=== PATIENT | female | born 1945 | race Two or more races ===

== ENCOUNTER 2022-05-08 00:40 | Emergency (ER) | payer MEDICARE, MEDICAID ==
[~2022-05-08] VITALS: Ht 139.7 cm; Wt 82.5 kg
[2022-05-08 02:24] LABS: Basophils # (auto) 0 10 ^3/uL (0-0.2); Basophils % (auto) 0.2 % (0.0-2.0); Eosinophils # (auto) 0 10 ^3/uL (0-0.8); Hemoglobin 12.5 g/dL (12.2-16.2); Lymphocytes # (auto) 1.8 10 ^3/uL (0.4-5.4); Lymphocytes % (auto) 19.9 % (10.0-50.0); Mean Corpuscular Hemoglobin 29.1 pg (28.0-32.0); Mean Corpuscular Volume 88.4 fL (80.0-100.0); Monocytes # (auto) 0.5 10 ^3/uL (0-1.3); Monocytes % (auto) 5.2 % (0.0-12.0); Neutrophils # (auto) 6.6 10 ^3/uL (1.6-8.6); Neutrophils % (auto) 74.7 % (37.0-80.0); Nucleated Red Blood Cells % 0.1 %; Red Cell Distribution Width 14.9 % (11.8-14.3); White Blood Cell 8.8 10^3/uL (4.4-10.8)
[2022-05-08 02:41] LABS: Albumin 3.7 g/dL (3.4-5.0); BUN/Creatinine Ratio 16.3; Calcium 9.6 mg/dL (8.5-10.1); Potassium 4.1 mmol/L (3.5-5.1)
[2022-05-08 02:44] LABS: Bilirubin, Total 0.5 mg/dL (0.2-1.0); Total Protein 7.3 g/dL (6.4-8.2)
[2022-05-08] MEDS ORDERED: MECLIZINE HCL 25 MG TAB PO ONE (05:30)
[2022-05-08] MEDS ORDERED: cloNIDine HCL 0.1 MG TAB PO ONE (05:30)
[2022-05-08] MEDS ORDERED: ONDANSETRON ODT 4 MG TAB PO ONE (05:45)
[2022-05-08] MEDS ORDERED: MECL25TA18 PO (06:09)
[2022-05-08 10:46] VITALS: BP 152/78
== END 2022-05-08 10:52 | disposition home or self-care (01) ==
LOC: ER 00:40
DX: I16.0 Hypertensive urgency (principal); I10 Essential (primary) hypertension; R42 Dizziness and giddiness; M19.90 Unspecified osteoarthritis, unspecified site; E11.8 Type 2 diabetes mellitus with unspecified complications; Z87.442 Personal history of urinary calculi
CPT/HCPCS: 36415; 70450; 80053; 84484; 85025; 93005; 99285; J8597; Q0162

== ENCOUNTER 2022-06-04 09:34 | Emergency (ER) | payer MEDICARE, MEDICAID ==
[~2022-06-04] VITALS: Ht 139.7 cm; Wt 82.0 kg
[~2022-06-04 09:34] MED LIST: MECL25TA18 PO
[2022-06-04 10:46] LABS: Basophils # (auto) 0 10 ^3/uL (0-0.2); Basophils % (auto) 0.1 % (0.0-2.0); Eosinophils # (auto) 0 10 ^3/uL (0-0.8); Eosinophils % (auto) 0.2 % (0.0-7.0); Hematocrit 36.5 % (36.0-46.0); Hemoglobin 12.3 g/dL (12.2-16.2); Lymphocytes # (auto) 1.3 10 ^3/uL (0.4-5.4); Lymphocytes % (auto) 15.5 % (10.0-50.0); Mean Corpuscular Hemoglobin 29.7 pg (28.0-32.0); Mean Corpuscular Hgb Conc. 33.8 g/dL (32.0-36.0); Monocytes # (auto) 0.9 10 ^3/uL (0-1.3); Monocytes % (auto) 11.1 % (0.0-12.0); Neutrophils # (auto) 6.1 10 ^3/uL (1.6-8.6); Neutrophils % (auto) 73.1 % (37.0-80.0); Red Blood Cells 4.15 10^6/uL (4.0-5.20); Red Cell Distribution Width 14.6 % (11.8-14.3); White Blood Cell 8.4 10^3/uL (4.4-10.8)
[2022-06-04] MEDS ORDERED: SODIUM CHLORIDE 0.9% 1,000 ML IV ONE (11:30)
[2022-06-04] MEDS ORDERED: ONDANSETRON HCL 4 MG/2 ML VIAL IV ONE (11:30)
[2022-06-04 11:33] LABS: Urine Bacteria NONE SEEN /hpf (None Seen); Urine Blood Negative /uL (Negative); Urine WBC <1 /hpf (0 - 5)
[2022-06-04 11:37] LABS: Albumin 3.8 g/dL (3.4-5.0); Calcium 9.2 mg/dL (8.5-10.1); Potassium 3.9 mmol/L (3.5-5.1)
[2022-06-04 11:49] LABS: BUN/Creatinine Ratio 15.7; Bilirubin, Total 0.5 mg/dL (0.2-1.0); Total Protein 7.4 g/dL (6.4-8.2)
[2022-06-04] MEDS ORDERED: METH4PAK PO (17:25)
[2022-06-04] MEDS ORDERED: AZIT1POW PO (17:25)
[2022-06-04 18:00] VITALS: BP 148/74
== END 2022-06-04 18:56 | disposition home or self-care (01) ==
LOC: ER 09:34
DX: U07.1 COVID-19 (principal); E11.9 Type 2 diabetes mellitus without complications; E78.5 Hyperlipidemia, unspecified; I10 Essential (primary) hypertension; Z90.710 Acquired absence of both cervix and uterus; Z87.442 Personal history of urinary calculi
CPT/HCPCS: 36415; 71046; 80053; 81001; 85025; 87426; 87804; 96361; 96374; 99284; J2405; J7030

== ENCOUNTER 2022-07-19 21:44 | Emergency (ER) | payer MEDICARE, MEDICAID ==
[~2022-07-19] VITALS: Ht 139.7 cm; Wt 178.0 kg
[~2022-07-19 21:44] MED LIST changes: +AZIT1POW PO; +METH4PAK PO
[2022-07-20] MEDS ORDERED: LIDOCAINE W/ EPINEPHRINE 1% 20ML VIAL ID ONE
[2022-07-20] MEDS ORDERED: NEOMYCIN-BACITRACIN-POLYM UNITDOSE PKG TOP OINT TOP ONE (00:45)
[2022-07-20 01:24] VITALS: BP 128/66
== END 2022-07-20 01:47 | disposition home or self-care (01) ==
LOC: EDBD 21:44 → ER 21:44
DX: S01.01XA Laceration without foreign body of scalp, initial encounter (principal); S80.02XA Contusion of left knee, initial encounter; E11.9 Type 2 diabetes mellitus without complications; E78.5 Hyperlipidemia, unspecified; I10 Essential (primary) hypertension; M54.2 Cervicalgia; Z90.710 Acquired absence of both cervix and uterus; Z87.442 Personal history of urinary calculi; W18.09XA Striking against other object with subsequent fall, initial encounter; Y93.89 Activity, other specified; Y92.89 Other specified places as the place of occurrence of the external cause; Y99.8 Other external cause status
CPT/HCPCS: 12002; 70450; 71045; 72125; 73562; 99284; J7030

== ENCOUNTER 2023-01-13 19:55 | Inpatient (IN) | payer MEDICARE, MEDICAID ==
[~2023-01-13] VITALS: Ht 165.1 cm; Wt 88.5 kg
[~2023-01-13 19:55] MED LIST changes: +MECL1TAB32 PO; -MECL25TA18 PO
[2023-01-13 20:58] LABS: Basophils # (auto) 0 10 ^3/uL (0-0.2); Basophils % (auto) 0.1 % (0.0-2.0); Eosinophils # (auto) 0 10 ^3/uL (0-0.8); Eosinophils % (auto) 0.1 % (0.0-7.0); Hematocrit 36.5 % (36.0-46.0); Hemoglobin 12.1 g/dL (12.2-16.2); Lymphocytes # (auto) 2.4 10 ^3/uL (0.4-5.4); Lymphocytes % (auto) 19.8 % (10.0-50.0); Mean Corpuscular Hemoglobin 29.5 pg (28.0-32.0); Mean Corpuscular Hgb Conc. 33.1 g/dL (32.0-36.0); Monocytes # (auto) 0.6 10 ^3/uL (0-1.3); Monocytes % (auto) 5.1 % (0.0-12.0); Neutrophils # (auto) 9.2 10 ^3/uL (1.6-8.6); Neutrophils % (auto) 74.9 % (37.0-80.0); Red Blood Cells 4.11 10^6/uL (4.0-5.20); Red Cell Distribution Width 13.8 % (11.8-14.3); White Blood Cell 12.3 10^3/uL (4.4-10.8)
[2023-01-13 21:17] LABS: Albumin 3.9 g/dL (3.4-5.0); Calcium 9.3 mg/dL (8.5-10.1); Magnesium 2.5 mg/dL (1.6-2.6); Potassium 3.6 mmol/L (3.5-5.1)
[2023-01-13 21:21] LABS: Urine Bacteria FEW /hpf (None Seen); Urine WBC 1 /hpf (0 - 5)
[2023-01-13 21:22] LABS: BUN/Creatinine Ratio 17.5 (10.0-20.0); Bilirubin, Total 0.4 mg/dL (0.2-1.0); Total Protein 7.9 g/dL (6.4-8.2)
[2023-01-13 21:25] LABS: Urine Clarity Clear (Clear); Urine Color Straw (Yellow); Urine Protein, UAD Trace (Negative); Urine Urobilinogen Normal (Negative)
[2023-01-13 21:26] LABS: Urine Blood Negative /uL (Negative); Urine pH 5 (5.0-8.0)
[2023-01-14] MEDS ORDERED: MECLIZINE HCL 25 MG TAB PO ONE (02:00)
[2023-01-14] MEDS ORDERED: ONDANSETRON HCL 4 MG/2 ML VIAL IV ONE (02:15)
[2023-01-14 02:35] VITALS: PULSE 80; RESP 18; O2SAT 94
[2023-01-14] MEDS ORDERED: ONDANSETRON ODT 4 MG TAB PO ONE ×2 (06:00)
[2023-01-14] MEDS ORDERED: NITROGLYCERIN 0.4 MG SL TAB SL PRN (06:45)
[2023-01-14] MEDS ORDERED: MECLIZINE HCL 25 MG TAB PO PRN (06:45)
[2023-01-14] MEDS ORDERED: ACETAMINOPHEN 325 MG TAB PO PRN (06:45)
[2023-01-14] MEDS ORDERED: DOCUSATE SOD 100 MG CAP PO PRN (06:45)
[2023-01-14] MEDS ORDERED: MORPHINE SULFATE INJ 2 MG/ml SYRG IV PRN (06:45)
[2023-01-14] MEDS ORDERED: DEXTROSE (50%) 50ML SYRG IV PRN (06:45)
[2023-01-14] MEDS ORDERED: HYDROcodone-ACET 5/325MG TAB PO PRN (06:45)
[2023-01-14 07:50] VITALS: RESP 19; O2SAT 94
[2023-01-14 08:11] LABS: Basophils # (auto) 0 10 ^3/uL (0-0.2); Eosinophils # (auto) 0 10 ^3/uL (0-0.8); Hematocrit 36.5 % (36.0-46.0); Hemoglobin 12.2 g/dL (12.2-16.2); Lymphocytes # (auto) 1.1 10 ^3/uL (0.4-5.4); Lymphocytes % (auto) 10.4 % (10.0-50.0); Mean Corpuscular Hemoglobin 29.7 pg (28.0-32.0); Mean Corpuscular Hgb Conc. 33.3 g/dL (32.0-36.0); Mean Corpuscular Volume 89.2 fL (80.0-100.0); Monocytes # (auto) 0.6 10 ^3/uL (0-1.3); Monocytes % (auto) 5.5 % (0.0-12.0); Neutrophils # (auto) 8.7 10 ^3/uL (1.6-8.6); Neutrophils % (auto) 84.1 % (37.0-80.0); Red Blood Cells 4.09 10^6/uL (4.0-5.20); Red Cell Distribution Width 13.9 % (11.8-14.3); White Blood Cell 10.4 10^3/uL (4.4-10.8)
[2023-01-14 08:24] LABS: COVID19 ANTIGEN SOFIA FIA NEGATIVE (NEGATIVE); Rapid Influenza A Negative (Negative); Rapid Influenza B Negative (Negative)
[2023-01-14] MEDS: SODIUM CHLORIDE 0.9% 1,000 ML IV SCH ×2 (08:26→23:56)
[2023-01-14 08:29] LABS: Albumin 3.9 g/dL (3.4-5.0); Calcium 9.5 mg/dL (8.5-10.1); Potassium 3.9 mmol/L (3.5-5.1)
[2023-01-14 08:34] LABS: BUN/Creatinine Ratio 19.6 (10.0-20.0); Bilirubin, Total 0.4 mg/dL (0.2-1.0); Total Protein 7.7 g/dL (6.4-8.2)
[2023-01-14] MEDS: cefTRIAXone 1GM/50ML D5W 50 ML IV SCH (09:21)
[2023-01-14] MEDS ORDERED: ONDANSETRON HCL 4 MG/2 ML VIAL IV PRN (10:00)
[2023-01-14] MEDS: ACCU-CHEK COMFORT CURVE STRIP VI SCH ×2 (12:36→17:49)
[2023-01-14] MEDS: InsuLIN REG 1unit/0.01ml Soln (100units/ml) SC SCH ×2 (12:36→17:50)
[2023-01-14 13:25] LABS: Alcohol, Urine < 3.0 mg/dL (0-10); Amphetamine Screen, Urine NEGATIVE (NEGATIVE); Barbiturate Scree,Urine NEGATIVE (NEGATIVE); Benzodiazephine Screen, Urine NEGATIVE (NEGATIVE); Cannabinoid Screen, Urine NEGATIVE (NEGATIVE); Cocaine Screen, Urine NEGATIVE (NEGATIVE); Opiate Scree,Urine NEGATIVE (NEGATIVE); Phencyclidine Screen, Urine NEGATIVE (NEGATIVE)
[2023-01-14 20:00] VITALS: PULSE 85; RESP 18; O2SAT 95
[2023-01-15] VITALS (7 sets, daily range): BP systolic 115–141; BP diastolic 40–80; PULSE 70–76; RESP 16–18; TEMP 97.9–98.1; O2SAT 98–100
[2023-01-15] MEDS: ACCU-CHEK COMFORT CURVE STRIP VI SCH ×5 (00:26→22:56)
[2023-01-15] MEDS: InsuLIN REG 1unit/0.01ml Soln (100units/ml) SC SCH ×4 (00:33→16:58)
[2023-01-15 05:01] LABS: Basophils # (auto) 0 10 ^3/uL (0-0.2); Basophils % (auto) 0.2 % (0.0-2.0); Eosinophils # (auto) 0.1 10 ^3/uL (0-0.8); Eosinophils % (auto) 0.7 % (0.0-7.0); Hematocrit 31.5 % (36.0-46.0); Hemoglobin 10.5 g/dL (12.2-16.2); Lymphocytes # (auto) 3.3 10 ^3/uL (0.4-5.4); Lymphocytes % (auto) 41.4 % (10.0-50.0); Mean Corpuscular Hgb Conc. 33.4 g/dL (32.0-36.0); Mean Corpuscular Volume 89.8 fL (80.0-100.0); Monocytes # (auto) 0.8 10 ^3/uL (0-1.3); Monocytes % (auto) 10.5 % (0.0-12.0); Neutrophils # (auto) 3.8 10 ^3/uL (1.6-8.6); Neutrophils % (auto) 47.2 % (37.0-80.0); Nucleated Red Blood Cells % 0.1 %; Red Blood Cells 3.51 10^6/uL (4.0-5.20); Red Cell Distribution Width 13.8 % (11.8-14.3)
[2023-01-15 05:18] LABS: Albumin 3.2 g/dL (3.4-5.0); Calcium 8.7 mg/dL (8.5-10.1); Potassium 3.4 mmol/L (3.5-5.1)
[2023-01-15 05:22] LABS: BUN/Creatinine Ratio 15.6 (10.0-20.0); Bilirubin, Total 0.4 mg/dL (0.2-1.0); Total Protein 6.5 g/dL (6.4-8.2)
[2023-01-15] MEDS: cefTRIAXone 1GM/50ML D5W 50 ML IV SCH (09:17)
[2023-01-15] MEDS ORDERED: POTASSIUM EFFERVESENT TAB 25 MEQ PO ONE (15:15)
[2023-01-15 15:41] LABS: Cholesterol 170 mg/dL (< 200)
[2023-01-15 15:43] LABS: HDL Cholesterol 43 mg/dL (40-59); LDL Cholesterol 99 mg/dL (< 100); Triglycerides 196 mg/dL (< 150)
[2023-01-15 15:48] LABS: Folate (Folic Acid) 20.51 ng/mL (5.38-24)
[2023-01-15] MEDS: MECLIZINE HCL 25 MG TAB PO SCH (21:10)
[2023-01-16 05:00] VITALS: BP 106/61; PULSE 74; RESP 18; TEMP 98.4; O2SAT 99
[2023-01-16] MEDS: ACCU-CHEK COMFORT CURVE STRIP VI SCH ×3 (05:44→17:58)
[2023-01-16] MEDS: MECLIZINE HCL 25 MG TAB PO SCH ×3 (05:44→21:12)
[2023-01-16] MEDS: InsuLIN REG 1unit/0.01ml Soln (100units/ml) SC SCH ×4 (05:49→17:58)
[2023-01-16 05:54] LABS: Basophils # (auto) 0 10 ^3/uL (0-0.2); Basophils % (auto) 0.3 % (0.0-2.0); Eosinophils # (auto) 0.1 10 ^3/uL (0-0.8); Eosinophils % (auto) 1.7 % (0.0-7.0); Hematocrit 31.6 % (36.0-46.0); Hemoglobin 10.4 g/dL (12.2-16.2); Mean Corpuscular Volume 90.8 fL (80.0-100.0); Monocytes # (auto) 0.8 10 ^3/uL (0-1.3); Monocytes % (auto) 10.8 % (0.0-12.0); Neutrophils # (auto) 3.3 10 ^3/uL (1.6-8.6); Neutrophils % (auto) 46.2 % (37.0-80.0); Nucleated Red Blood Cells % 0.4 %; Red Blood Cells 3.48 10^6/uL (4.0-5.20); Red Cell Distribution Width 13.9 % (11.8-14.3); White Blood Cell 7.3 10^3/uL (4.4-10.8)
[2023-01-16 06:20] LABS: Albumin 2.9 g/dL (3.4-5.0); Calcium 8.8 mg/dL (8.5-10.1); Potassium 4.2 mmol/L (3.5-5.1)
[2023-01-16 06:22] LABS: BUN/Creatinine Ratio 16.5 (10.0-20.0)
[2023-01-16 06:25] LABS: Bilirubin, Total 0.4 mg/dL (0.2-1.0); Total Protein 6.3 g/dL (6.4-8.2)
[2023-01-16 09:00] VITALS: BP 111/70; PULSE 76; RESP 18; TEMP 97.6; O2SAT 98
[2023-01-16] MEDS: ATORVASTATIN 20 MG TAB PO SCH (10:00)
[2023-01-16] MEDS ORDERED: LOSARTAN POTASSIUM 50 MG TAB PO SCH (10:00)
[2023-01-16] MEDS: ASPirin-EC 81 mg tab PO SCH (10:01)
[2023-01-16] MEDS: PANTOPRAZOLE 40 MG/10 ML VIAL INJ IV SCH (10:01)
[2023-01-16 13:00] VITALS: BP_SYST 123; BP_SYST 138; BP_SYST 98; BP_DIAS 42; BP_DIAS 55; BP_DIAS 75; PULSE 77; RESP 18; TEMP 97.7; O2SAT 99
[2023-01-16] MEDS ORDERED: ALBUTEROL SULF 2.5 MG/0.5ML(0.5%) NEB SOLN ONE (13:48)
[2023-01-16 17:00] VITALS: BP 118/57; PULSE 76; RESP 18; TEMP 97.8; O2SAT 94
[2023-01-16 20:00] VITALS: BP 122/69; PULSE 75; RESP 17; TEMP 97.2
[2023-01-16 22:00] VITALS: BP 122/69; PULSE 75; RESP 17; TEMP 97.2; O2SAT 97
[2023-01-17] MEDS: ACCU-CHEK COMFORT CURVE STRIP VI SCH ×3 (00:56→13:56)
[2023-01-17] MEDS: InsuLIN REG 1unit/0.01ml Soln (100units/ml) SC SCH ×3 (00:57→12:00)
[2023-01-17] MEDS ORDERED: FUR20T PO (01:21)
[2023-01-17] MEDS ORDERED: METO-289 PO (01:21)
[2023-01-17] MEDS ORDERED: ATOR40TA52 PO (01:21)
[2023-01-17] MEDS ORDERED: METF-370 PO (01:21)
[2023-01-17] MEDS ORDERED: ASPI-325 PO (01:21)
[2023-01-17] MEDS ORDERED: LOSA100T58 PO (01:21)
[2023-01-17 05:00] VITALS: BP 125/63; PULSE 74; RESP 17; TEMP 98.1; O2SAT 100
[2023-01-17] MEDS: MECLIZINE HCL 25 MG TAB PO SCH ×2 (06:29→15:49)
[2023-01-17 06:48] LABS: Basophils # (auto) 0 10 ^3/uL (0-0.2); Basophils % (auto) 0.1 % (0.0-2.0); Eosinophils # (auto) 0.2 10 ^3/uL (0-0.8); Eosinophils % (auto) 2.5 % (0.0-7.0); Hematocrit 32.6 % (36.0-46.0); Hemoglobin 10.8 g/dL (12.2-16.2); Lymphocytes # (auto) 2.3 10 ^3/uL (0.4-5.4); Lymphocytes % (auto) 34.3 % (10.0-50.0); Mean Corpuscular Hemoglobin 29.9 pg (28.0-32.0); Mean Corpuscular Volume 90.5 fL (80.0-100.0); Monocytes # (auto) 0.7 10 ^3/uL (0-1.3); Monocytes % (auto) 10.7 % (0.0-12.0); Neutrophils # (auto) 3.6 10 ^3/uL (1.6-8.6); Neutrophils % (auto) 52.4 % (37.0-80.0); Nucleated Red Blood Cells % 0.1 %; Red Blood Cells 3.61 10^6/uL (4.0-5.20); Red Cell Distribution Width 13.7 % (11.8-14.3); White Blood Cell 6.8 10^3/uL (4.4-10.8)
[2023-01-17 06:58] LABS: Calcium 8.7 mg/dL (8.5-10.1); Magnesium 2.7 mg/dL (1.6-2.6)
[2023-01-17 07:01] LABS: BUN/Creatinine Ratio 14.4 (10.0-20.0); Bilirubin, Total 0.5 mg/dL (0.2-1.0); Total Protein 6.5 g/dL (6.4-8.2)
[2023-01-17 07:06] LABS: % Iron Saturation 20.8 % (15-50)
[2023-01-17 09:00] VITALS: BP 135/64; PULSE 77; RESP 18; TEMP 97.8; O2SAT 99
[2023-01-17] MEDS ORDERED: LOSARTAN POTASSIUM 50 MG TAB PO SCH (10:00)
[2023-01-17] MEDS: ATORVASTATIN 20 MG TAB PO SCH (10:00)
[2023-01-17 10:02] LABS: Folate (Folic Acid) 22.64 ng/mL (5.38-24)
[2023-01-17] MEDS: PANTOPRAZOLE 40 MG/10 ML VIAL INJ IV SCH (10:42)
[2023-01-17] MEDS: ASPirin-EC 81 mg tab PO SCH (10:42)
[2023-01-17 13:00] VITALS: BP 145/81; PULSE 75; RESP 20; TEMP 98; O2SAT 93
[2023-01-17] MEDS ORDERED: MECL25CH38 PO (13:29)
[2023-01-17 16:44] VITALS: BP 111/70; TEMP 36.7
[2023-01-17 17:00] VITALS: BP 126/69; PULSE 84; RESP 18; TEMP 98.2; O2SAT 94
[2023-01-18] MEDS ORDERED: PANTOPRAZOLE 40 MG TAB PO SCH (10:00)
[2023-01-20 01:06] LABS: Vitamin D-2 25-Hydroxy 5.5 ng/mL (.)
== END 2023-01-17 18:00 | disposition home or self-care (01) | DRG 111 ==
LOC: ER 19:55 → OVERFLOW 01-14 06:40 → EDUNIT# 01-14 06:40 → CENTRAL 01-15 12:42
PROVIDERS: ADMIT Internal Medicine; ATTEND Internal Medicine
DX: H81.10 Benign paroxysmal vertigo, unspecified ear (principal); I27.21 Secondary pulmonary arterial hypertension; E11.22 Type 2 diabetes mellitus with diabetic chronic kidney disease; R16.0 Hepatomegaly, not elsewhere classified; E88.09 Other disorders of plasma-protein metabolism, not elsewhere classified; D64.9 Anemia, unspecified; D72.829 Elevated white blood cell count, unspecified; Z20.822 Contact with and (suspected) exposure to COVID-19; K59.00 Constipation, unspecified; K76.0 Fatty (change of) liver, not elsewhere classified; N18.30 Chronic kidney disease, stage 3 unspecified; E11.65 Type 2 diabetes mellitus with hyperglycemia; I12.9 Hypertensive chronic kidney disease with stage 1 through stage 4 chronic kidney disease, or unspecified chronic kidney disease; E78.5 Hyperlipidemia, unspecified; K57.30 Diverticulosis of large intestine without perforation or abscess without bleeding; K44.9 Diaphragmatic hernia without obstruction or gangrene; R11.15 Cyclical vomiting syndrome unrelated to migraine
CPT/HCPCS: 36415; 70450; 71045; 74176; 80053; 80061; 80307; 81001; 82270; 82306; 82607; 82746; 82962; 83036; 83540; 83550; 83690; 83735; 84443; 84484; 85025; 87426; 87804; 96361; 96374; 97110; 97116; 97163; 97530; C9113; G0378; J0696; J1815; J2405; Q0162

== ENCOUNTER 2024-07-31 11:22 | Inpatient (IN) | payer OTHER, MEDICAID ==
[~2024-07-31] VITALS: Ht 139.7 cm; Wt 81.7 kg
[~2024-07-31 11:22] MED LIST changes: +ASPI-325 PO; +ATOR40TA52 PO; -AZIT1POW PO; +FURO20TA4 PO; +LOSA-535 PO; +MACI1TAB2; -MECL1TAB32 PO; +MECL25CH38 PO; +METF-370 PO; -METH4PAK PO; +METO-289 PO
--- NOTE | 2024-07-31 11:44 | ED.PDOC ---
HPI (NEURO) HPI Comments 79 y/o F, with PMHX OF DM and HTN presents to the ED for CC of dizziness. Patient states, she has been experiencing dizziness episodes x4days with associated unsteady gait and shortness of breath. Patient relays, she has not experienced symptoms in the past. Patient denies abdominal pain, weakness, fatigue, lightheadedness, or N/V/D. No other associated symptom's, modifiers, recent injuries or sick contacts at this time. Time Seen by MD: 11:30 Primary Care Provider: NOÉ Reviewed Notes: Nurses Notes, Medications, Allergies Information Source: Patient, Relative (Child) Mode of Arrival: Ambulatory Severity: Moderate Timing: Days Duration: Since onset Prehospital treatment: None Onset: At rest Circumstances: Spontaneous Symptoms: Vertigo Modifying factors: Nothing Past Medical History PAST MEDICAL HISTORY: COPD, DM, HTN Surgical History: Denies all surgeries BOX BUILDER History: Denies all BOX BUILDER Hx Family History Family History: Reviewed,noncontributory to illness Social History Smoker: Non-Smoker Alcohol: Denies ETOH Use Drugs: Denies Drug Use Lives In: Home Constitutional: denies: chills, diaphoresis, fatigue, fever, malaise, sweats, weakness, others EENTM: denies: blurred vision, double vision, ear bleeding, ear discharge, ear drainage, ear pain, ear ringing, eye pain, eye redness, hearing loss, mouth pa in, mouth swelling, nasal discharge, nose bleeding, nose congestion, nose pain, photophobia, tearing, throat pain, throat swelling, voice changes, others Respiratory: denies: cough, hemoptysis, orthopnea, SOB at rest, shortness of breath, SOB with excertion, stridor, wheezing, others Cardiovascular: denies: chest pain, dizzy spells, diaphoresis, Dyspnea on exertion, edema, irregular heart beat, left arm pain, lightheadedness, palpitations, PND, syncope, others Gastrointestinal: denies: abdomen distended, abdominal pain, blood streaked bowels, constipated, diarrhea, dysphagia, difficulty swallowing, hematemesis, melena, nausea, poor appetite, poor fluid intake, rectal bleeding, rectal pain, vomiting, others Genitourinary: denies: abnormal vagina bleeding, burning, dyspareunia, dysuria, flank pain, frequency, hematuria, incontinence, pain, , vagina discharge, urgency, others Neurological: reports: dizziness; denies: fainting, headache, left sided numbness, left sided weakness, numbness, paresthesia, pre-existing deficit, right sided numbness, right sided weakness, seizure, speech problems, tingling, tremors, weakness, others Musculoskeletal: denies: back pain, gout, joint pain, joint swelling, muscle pain, muscle stiffness, neck pain, others Integumetry: denies: bruises, change in color, change in hair/nails, dryness, laceration, lesions, lumps, rash, wounds, others Allergic/Immunocompromised: denies: Difficulty Healing, Frequent Infections, Hives, Itching, others Hematologic/Lymphatic: denies: anemia, blood clots, easy bleeding, easy bruisi ng, swollen glands, others Endocrine: denies: excessive hunger, excessive sweating, excessive thirst, exce ssive urination, flushing, intolerance to cold, intolerance to heat, unexplained weight gain, unexplained weight loss, others Psychiatric: denies: anxiety, bipolar disorder, depression, hopeless, panic disorder, schizophrenia, sleepless, suicidal, others Physical Exam General Appearance: Moderate Distress HEENT: Normal ENT Inspection, Pharynx Normal, TMs Normal Neck: Full Range of Motion, Non-Tender, Normal, Normal Inspection Respiratory: Chest Non-Tender, Lungs Clear, No Accessory Muscle Use, No Respiratory Distress, Normal Breath Sounds Cardiovascular: No Edema, No JVD, No Murmur, No Gallop, Normal Peripheral Pulse s, Regular Rate/Rhythm Breast Exam: Deferred Gastrointestinal: No Organomegaly, Non Tender, No Pulsatile Mass, Normal Bowel Sounds, Soft Genitalia: Deferred Pelvic: Deferred Rectal: Deferred Extremities: No calf tenderness, Normal capillary refill, Normal inspection, Normal range of motion, Non-tender, No pedal edema Musculoskeletal : Apperance: Normal Neurologic: Dizziness, Motor Weakness, Other (Unable to ambulate without falling) Cerebellar Function: NOT DONE Reflexes: NOT DONE Skin: Normal Color Peripheral Pulses: 3+ Radial (R), 3+ Radial (L) Lymphatic: No Adenopathy Was a procedure done? Was a procedure done?: No Differential Diagnosis (SZ) Seizure: Psychogenic Seizure, Closed Head Injury, CVA/TIA General Weakness: Anemia, Dehydration, Electrolyte imbalance, Hypotension X-Ray, Labs, Meds, VS Vital Signs Date Time Temp Pulse Resp B/P (MAP) Pulse Ox O2 Delivery O2 Flow Rate FiO2 07/31/24 12:14 83 18 97 Room Air* 0 21 07/31/24 12:14 98.0 81 18 151/82 (105) 97 98.0 07/31/24 11:47 85 07/31/24 11:43 98.8 88 18 158/73 (101) 98 Lab Test 07/31/24 11:45 07/31/24 11:44 07/31/24 11:42 Range/Units White Blood Count 10.0 4.4-10.8 10^3/uL Red Blood Count 4.60 4.0-5.20 10^6/uL Hemoglobin 14.1 12.2-16.2 g/dL Hematocrit 41.3 36.0-46.0 % Mean Corpuscular Volume 89.9 80.0-100.0 fL Mean Corpuscular Hemoglobin 30.6 28.0-32.0 pg Mean Corpuscular Hemoglobin Concent 34.1 32.0-36.0 g/dL Red Cell Distribution Width 15.9 H 11.8-14.3 % Platelet Count 210 140-450 10^3/uL Mean Platelet Volume 8.9 6.9-10.8 fL Neutrophils (%) (Auto) 49.3 37.0-80.0 % Lymphocytes (%) (Auto) 40.6 10.0-50.0 % Monocytes (%) (Auto) 9.2 0.0-12.0 % Eosinophils (%) (Auto) 0.5 0.0-7.0 % Basophils (%) (Auto) 0.4 0.0-2.0 % Neutrophils # (Auto) 4.9 1.6-8.6 10 ^3/uL Lymphocytes # (Auto) 4.0 0.4-5.4 10 ^3/uL Monocytes # (Auto) 0.9 0-1.3 10 ^3/uL Eosinophils # (Auto) 0 0-0.8 10 ^3/uL Basophils # (Auto) 0 0-0.2 10 ^3/uL Nucleated Red Blood Cells 0.0 % Sodium Level 139 136-145 mmol/L Potassium Level 3.9 3.5-5.1 mmol/L Chloride Level 105 98-107 mmol/L Carbon Dioxide Level 25 20-31 mmol/L Anion Gap 9 5-15 Blood Urea Nitrogen 20 9-23 mg/dL Creatinine 1.17 H 0.550-1.02 mg/dL Glomerular Filtration Rate Calc 48 >90 mL/min BUN/Creatinine Ratio 17.1 10.0-20.0 Serum Glucose 173 H 74-106 mg/dL Calcium Level 10.5 H 8.7-10.4 mg/dL Troponin I High Sensitivity < 3 L </=34 ng/L POC Glucose 177 H 70-106 mg/dl Urine Color Light-yellow Yellow Urine Clarity Clear Clear Urine pH 5.5 5.0-9.0 Urine Specific [place] 1.016 1.001-1.035 Urine Protein Negative Negative Urine Ketones Negative Negative Urine Blood Negative Negative /uL Urine Nitrite Negative Negative Urine Bilirubin Negative Negative Urine Urobilinogen Normal Negative mg/dL Urine Leukocyte Esterase Negative Negative /uL Urine RBC <1 0 - 4 /hpf Urine Microscopic WBC 5 0-5 /HPF Urine Squamous Epithelial Cells Few <5 /hpf Urine Bacteria None seen None Seen /hpf Urine Glucose 4+ H Normal mg/dL [place] [id number] Ph: [phone] DIAGNOSTIC IMAGING Diagnostic Imaging Report : [id number] Signed PATIENT: LETA CLARKAACCT: [id number] UNIT: [id number] : 1945 LOC: ER ROOM / BED: / AGE / SEX: 79 / F ADM STATUS: REG ER SERVICE 1139 ORDERING PHYSICIAN: LUNA MORELOS MD PROCEDURE(s): CXRP - CHEST PORTABLE REASON: sob ORDER NUMBER(s): [id number], ACCESSION NUMBER(s): [id number] CHEST RADIOGRAPH Indication: sob Technique: Single frontal view of the chest was obtained Comparison: CHEST PORTABLE on DOS: 07/19/22, CXRP on DOS: 07/19/22 FINDINGS: Lines and Tubes: None Lungs: No focal consolidation. Pleura: No effusion. No pneumothorax. Cardiomediastinal contours: Unremarkable Bones: No acute osseous abnormality. IMPRESSION: No acute cardiopulmonary disease. ATED BY: MARIO PARK MD DICTATED DATE/TIME: 07/31/24 1209 SIGNED BY: MARIO PARK MD SIGNED DATE/TIME: 07/31/24 1209 CC: [place] [id number] Ph: [phone] DIAGNOSTIC IMAGING Diagnostic Imaging Report : [id number] Signed PATIENT: LETA CLARKAACCT: [id number] UNIT: [id number] : 1945 LOC: ER ROOM / BED: / AGE / SEX: 79 / F ADM STATUS: REG ER SERVICE 1140 ORDERING PHYSICIAN: LUNA MORELOS MD PROCEDURE(s): HWOCT - HEAD WITHOUT CONTRAST REASON: tia ORDER NUMBER(s): [id number], ACCESSION NUMBER(s): [id number] EXAM: CT HEAD WITHOUT CONTRAST HISTORY: tia COMPARISON: HEAD WITHOUT CONTRAST on DOS: 07/19/22, HEAD WITHOUT CONTRAST on DOS: 05/08/22 TECHNIQUE: Noncontrast axial CT images of the head were performed. Sagittal and coronal reformatted images were obtained. This CT exam was performed using 1 or more of the following dose reduction techniques: Automated exposure control, adjustment of the mA and/or kv according to patient size, or the use of iterative reconstruction techniques. Radiation Dose : Head: CT Dose: CTDI volume is 51.9 mGy. Dose-length product is 832.14 mGy*cm FINDINGS: There is mild global brain atrophy. No intracranial hemorrhage, mass, midline shift, hydrocephalus, or evidence of acute large vessel infarct. There are atherosclerotic calcifications of the cavernous ICAs and terminal vertebral art eries. The partially-visualized paranasal sinuses are clear. There is a small amount of fluid in the right mastoid air cells. The left mastoid air cells and bilateral middle ear spaces are clear. No cranial fracture or scalp edema. IMPRESSION: 1. Global brain atrophy without evidence of acute intracranial process. If acute infarct is clinically suspected, consider follow-up noncontrast MRI of the head to include diffusion-weighted images for further evaluation. 2. Fluid in the right mastoid air cells may be due to sterile fluid or mastoiditis. ATED BY: ANITHA LONDON MD DICTATED DATE/TIME: 07/31/24 1210 SIGNED BY: ANITHA LONDON MD SIGNED DATE/TIME: 07/31/24 1210 CC: Patient alert. Unable to ambulate without falling. Blood sugar elevated. Vitals stable. Urinalysis within normal limits. WBC within normal limits. Blood pressure elevated. Continues to have dizziness. Autonomic disorder. Possibly will need MRI. Explained to the family. Continue cardiac monitoring. Time of 1ST Reevaluation: 12:00 Reevaluation 1ST: Unchanged Patient Education/Counseling: Diagnosis, Treatment Family Education/Counseling: No Family Present Departure 1 Departure Time of Disposition: 12:33 Impression: Primary Impression: TIA (transient ischemic attack) Additional Impressions: Autonomic disorder Uncontrolled diabetes mellitus Qualified Codes: E13.65 - Other specified diabetes mellitus with hyperglycemia Disposition: ADMITTED INPATIENT Admit to: Med Surg Condition: Guarded Critical Care Note Critical Care Time?: No Stability Stability form required: No Heart Score Heart Score: Heart Score Response (Comments) Value History Slightly Suspicious 0 EKG Normal 0 Age >65 2 Risk Factors >3 or Hx ASHD 2 Troponin Normal limit 0 Total 4 I personally scribed for LUNA MORELOS MD ([email or web address]) on 07/31/24 at 11:44. Electronically submitted by Marleni Piedra ([email or web address]). I personally scribed for LUNA MORELOS MD ([email or web address]) on 07/31/24 at 12:39. Electronically submitted by Marleni Piedra ([employer]). I personally scribed for LUNA MORELOS MD ([email or web address]) on 07/31/24 at 12:43. Electronically submitted by Marleni Piedra ([email or web address]). LUNA MORELOS MD Jul 31, 2024 11:44
[2024-07-31 11:57] LABS: Basophils # (auto) 0 10 ^3/uL (0-0.2); Basophils % (auto) 0.4 % (0.0-2.0); Eosinophils # (auto) 0 10 ^3/uL (0-0.8); Eosinophils % (auto) 0.5 % (0.0-7.0); Hematocrit 41.3 % (36.0-46.0); Hemoglobin 14.1 g/dL (12.2-16.2); Lymphocytes % (auto) 40.6 % (10.0-50.0); Mean Corpuscular Hemoglobin 30.6 pg (28.0-32.0); Mean Corpuscular Hgb Conc. 34.1 g/dL (32.0-36.0); Mean Corpuscular Volume 89.9 fL (80.0-100.0); Monocytes # (auto) 0.9 10 ^3/uL (0-1.3); Monocytes % (auto) 9.2 % (0.0-12.0); Neutrophils # (auto) 4.9 10 ^3/uL (1.6-8.6); Neutrophils % (auto) 49.3 % (37.0-80.0); Platelet Count (auto) 210 10^3/uL (140-450); Red Cell Distribution Width 15.9 % (11.8-14.3)
[2024-07-31 12:05] LABS: Urine Bacteria None Seen /hpf (None Seen)
--- NOTE | 2024-07-31 12:11 | DVH ---
CHEST RADIOGRAPH Indication: sob Technique: Single frontal view of the chest was obtained Comparison: CHEST PORTABLE on DOS: 07/19/22, CXRP on DOS: 07/19/22 FINDINGS: Lines and Tubes: None Lungs: No focal consolidation. Pleura: No effusion. No pneumothorax. Cardiomediastinal contours: Unremarkable Bones: No acute osseous abnormality. IMPRESSION: No acute cardiopulmonary disease.
--- NOTE | 2024-07-31 12:13 | DVH ---
EXAM: CT HEAD WITHOUT CONTRAST HISTORY: tia COMPARISON: HEAD WITHOUT CONTRAST on DOS: 07/19/22, HEAD WITHOUT CONTRAST on DOS: 05/08/22 TECHNIQUE: Noncontrast axial CT images of the head were performed. Sagittal and coronal reformatted images were obtained. This CT exam was performed using 1 or more of the following dose reduction techniques: Au tomated exposure control, adjustment of the mA and/or kv according to patient size, or the use of ite rative reconstruction techniques. Radiation Dose : Head: CT Dose: CTDI volume is 51.9 mGy. Dose-length product is 832.14 mGy*cm FINDINGS: There is mild global brain atrophy. No intracranial hemorrhage, mass, midline shift, hydrocephalus, o r evidence of acute large vessel infarct. There are atherosclerotic calcifications of the cavernous I [place] and terminal vertebral arteries. The partially-visualized paranasal sinuses are clear. There is a small amount of fluid in the right mastoid air cells. The left mastoid air cells and bilateral mid dle ear spaces are clear. No cranial fracture or scalp edema. IMPRESSION: 1. Global brain atrophy without evidence of acute intracranial process. If acute infarct is clinical ly suspected, consider follow-up noncontrast MRI of the head to include diffusion-weighted images for further evaluation. 2. Fluid in the right mastoid air cells may be due to sterile fluid or mastoiditis.
[2024-07-31 12:14] VITALS: PULSE 83; RESP 18; O2SAT 97
[2024-07-31 12:15] LABS: Chloride 105 mmol/L (98-107); Potassium 3.9 mmol/L (3.5-5.1); Sodium 139 mmol/L (136-145)
[2024-07-31 12:16] LABS: Anion Gap 9 (5-15); Carbon Dioxide 25 mmol/L (20-31)
[2024-07-31 12:18] LABS: Urine Blood Negative /uL (Negative); Urine Clarity Clear (Clear); Urine Color Light-Yellow (Yellow); Urine Protein, UAD Negative (Negative); Urine Specific Gravity 1.016 (1.001-1.035); Urine Squamous Epithelial Cell FEW /hpf (<5); Urine Urobilinogen Normal (Negative); Urine WBC 5 /HPF (0-5); Urine pH 5.5 (5.0-9.0)
[2024-07-31 12:21] LABS: BUN/Creatinine Ratio 17.1 (10.0-20.0); Blood Urea Nitrogen 20 mg/dL (9-23)
[2024-07-31 12:23] LABS: Calcium 10.5 mg/dL (8.7-10.4); Glucose 173 mg/dL (74-106)
[2024-07-31 20:00] VITALS: PULSE 74; RESP 18; O2SAT 97
[2024-07-31] MEDS: ACETAMINOPHEN 325 MG TAB PO ONE (20:46)
[2024-07-31] MEDS: SODIUM CHLORIDE 0.9% 500 ML IV ONE (22:15)
[2024-07-31] MEDS: MECLIZINE HCL 25 MG TAB PO ONE (22:15)
[2024-07-31] MEDS: ASPirin 81 mg TAB PO ONE (22:15)
[2024-07-31 22:52] VITALS: BP 126/78; PULSE 78; RESP 19; TEMP 97.6; O2SAT 93
[2024-08-01] VITALS (8 sets, daily range): BP systolic 84–145; BP diastolic 39–78; PULSE 69–90; RESP 14–20; TEMP 97.6–98.1; O2SAT 93–97
[2024-08-01] MEDS: AMOXICILLIN/CLAVUL 875 MG TAB PO SCH (01:07)
--- NOTE | 2024-08-01 04:55 | DVHHPRES ---
History of Present Illness Resident Creating Document: YOLI MCKEON RESIDENT History of Present Illness A 79-year-old female with a past medical history of hypertension, diabetes mellitus, dyslipidemia, pulmonary hypertension, vertigo, anxiety, and chronic kidney disease presents to the ED with a four-day history of feeling as if she is leaning to one side. The patient initially described this as dizziness but later clarified that she perceives a lateral imbalance rather than true vertigo. She denies headache, nausea, vomiting, focal weakness, numbness, fever, recent infections, or any new medications. No prior similar episodes. No recent falls or trauma. PMHx: hypertension, diabetes mellitus, dyslipidemia, pulmonary hypertension, vertigo, anxiety, and chronic kidney disease Home meds: Aspirin 81 atorvastatin 40 mg furosemide 20 losartan 100 mg macitentan 10 mg meclizine 25mg metformin 00 mg and metoprolol succinate 50 mg Smoker: Non-Smoker Alcohol: Denies ETOH Use Drugs: Denies Drug Use Lives In: Home Review of Systems Constitutional: No: Fever, Chills, Sweats, Weakness, Malaise, Other Eyes: No: Pain, Vision change, Conjunctivae inflammation, Eyelid inflammation, Other, Redness ENT: No: Ear pain, Ear discharge, Nose pain, Nose discharge, Nose congestion, Mouth pain, Mouth swelling, Throat pain, Throat swelling, Other Respiratory: No: Cough, Dry, Shortness of breath, SOB with excertion, Wheezing, Hemoptysis, Pleuritic Pain, Sputum, Wheezing, Other Cardiovascular: No: Chest Pain, Palpitations, Orthopnea, Paroxysmal Noc. Dyspnea, Edema, Lt Headedness, Other Gastrointestinal: No: Nausea, Vomiting, Abdominal Pain, Diarrhea, Constipation, Melena, Hematochezia, Other Genitourinary: No Dysuria, No Frequency, No Incontinence, No Hematuria, No Retention, No Other Musculoskeletal: No: other, neck pain, shoulder pain, arm pain, back pain, hand pain, leg pain, foot pain Skin: No: Rash, Lesions, Jaundice, Bruising, Other Neurological: No: Weakness, Numbness, Incoordination, Change in speech, Confusion, Seizures, Other Allergies: Coded Allergies: NO KNOWN ALLERGIES (Unverified , 05/08/22) Medications Current Medications Medications Dose Ordered Sig/Ryan Route Start Time Stop Time Status Last Admin Dose Admin Amoxicillin/ Clavulanate Potassium 875 mg Q12HR PO 08/01/24 01:00 08/01/24 01:07 875 MG Exam Vital Signs Vital Signs Date Time Temp Pulse Resp B/P (MAP) Pulse Ox O2 Delivery O2 Flow Rate FiO2 08/01/24 01:00 97.6 71 18 110/53 (72) 95 97.6 139/77 (97) 127/69 (88) 07/31/24 22:52 Room Air* 0 21 Exam Neurological: No focal deficits, cranial nerves intact, strength 5/5 in all extremities, normal reflexes, and normal cerebellar function except for mild instability when walking. General Appearance: Alert, Oriented X3 HEENT: Atraumatic, PERRLA Respiratory: Normal air movement Cardiovascular: Regular rate Abdominal: Normal bowel sounds Extremities: No clubbing, No cyanosis Labs/Xrays Labs Test 07/31/24 11:45 07/31/24 11:44 07/31/24 11:42 Range/Units White Blood Count 10.0 4.4-10.8 10^3/uL Red Blood Count 4.60 4.0-5.20 10^6/uL Hemoglobin 14.1 12.2-16.2 g/dL Hematocrit 41.3 36.0-46.0 % Mean Corpuscular Volume 89.9 80.0-100.0 fL Mean Corpuscular Hemoglobin 30.6 28.0-32.0 pg Mean Corpuscular Hemoglobin Concent 34.1 32.0-36.0 g/dL Red Cell Distribution Width 15.9 H 11.8-14.3 % Platelet Count 210 140-450 10^3/uL Mean Platelet Volume 8.9 6.9-10.8 fL Neutrophils (%) (Auto) 49.3 37.0-80.0 % Lymphocytes (%) (Auto) 40.6 10.0-50.0 % Monocytes (%) (Auto) 9.2 0.0-12.0 % Eosinophils (%) (Auto) 0.5 0.0-7.0 % Basophils (%) (Auto) 0.4 0.0-2.0 % Neutrophils # (Auto) 4.9 1.6-8.6 10 ^3/uL Lymphocytes # (Auto) 4.0 0.4-5.4 10 ^3/uL Monocytes # (Auto) 0.9 0-1.3 10 ^3/uL Eosinophils # (Auto) 0 0-0.8 10 ^3/uL Basophils # (Auto) 0 0-0.2 10 ^3/uL Nucleated Red Blood Cells 0.0 % Sodium Level 139 136-145 mmol/L Potassium Level 3.9 3.5-5.1 mmol/L Chloride Level 105 98-107 mmol/L Carbon Dioxide Level 25 20-31 mmol/L Anion Gap 9 5-15 Blood Urea Nitrogen 20 9-23 mg/dL Creatinine 1.17 H 0.550-1.02 mg/dL Glomerular Filtration Rate Calc 48 >90 mL/min BUN/Creatinine Ratio 17.1 10.0-20.0 Serum Glucose 173 H 74-106 mg/dL Calcium Level 10.5 H 8.7-10.4 mg/dL Troponin I High Sensitivity < 3 L </=34 ng/L Thyroid Stimulating Hormone (TSH) 1.48 0.55-4.78 uIU/mL POC Glucose 177 H 70-106 mg/dl Urine Color Light-yellow Yellow Urine Clarity Clear Clear Urine pH 5.5 5.0-9.0 Urine Specific [place] 1.016 1.001-1.035 Urine Protein Negative Negative Urine Ketones Negative Negative Urine Blood Negative Negative /uL Urine Nitrite Negative Negative Urine Bilirubin Negative Negative Urine Urobilinogen Normal Negative mg/dL Urine Leukocyte Esterase Negative Negative /uL Urine RBC <1 0 - 4 /hpf Urine Microscopic WBC 5 0-5 /HPF Urine Squamous Epithelial Cells Few <5 /hpf Urine Bacteria None seen None Seen /hpf Urine Glucose 4+ H Normal mg/dL Assessment/Plan Assessment/Plan Workup: Head CT: 1. Global brain atrophy without evidence of acute intracranial process. If acute infarct is clinically suspected, consider follow-up noncontrast MRI of the head to include diffusion-weighted images for further evaluation. 2. Fluid in the right mastoid air cells may be due to sterile fluid or mastoiditis. Assessment & Plan: A 79-year-old female with a history of hypertension, diabetes, dyslipidemia, pulmonary hypertension, vertigo, anxiety, and CKD presents with ataxia rather than true vertigo, likely due to chronic otitis media with possible mastoiditis based on CT findings. No acute neurological deficits were found. #Ataxia rule out stroke MRI brain ordered for further evaluation. Neurology consult. Aspirin started Permissive hypertension # Suspected Chronic Otitis Media with Mastoiditis Started on amoxicillin for presumed bacterial involvement. Meclizine for symptomatic relief. #KARLA on possible CKD Fluids given #Diabetes Mild insulin sliding scale Case discussed with Dr Shelton Plan discussed with: Patient, Other (rn) My Orders Orders - YOLI MCKEON RESIDENT Procedure Category Date Status Time Admit ADMIT 07/31/24 Transmitted 21:25 Orthostatic Vital ORDERS 07/31/24 Transmitted Signs 21:25 Orthostatic Vital ED NURSING 07/31/24 Transmitted Signs Consistent DIET 08/01/24 Transmitted Carb(Ccho)Diabetes Breakfast Brain Head Wo Contrast MRI 07/31/24 Logged 21:25 * Neurology Consult CONS 07/31/24 Transmitted 23:02 Vitamin B12 LAB 07/31/24 Logged 23:02 Folate (Folic Acid) LAB 07/31/24 Logged 23:02 RPR LAB 07/31/24 Logged 23:02 Amoxicillin/Clavulanate PHA 08/01/24 In Process Tablet (Augmenti 01:00 Complete Blood Count LAB 08/01/24 Logged 04:04 Comprehensive LAB 08/01/24 Logged Metabolic Panel 04:04 Date of Service: Jul 31, 2024 Billing Provider: NOREEN SHELTON MD Common Visit Codes: 50249-OHRMZZF INP/OBS CARE (HIGH) Secondary Visit Codes: [id number] CARE PLAN 30 MINUTES YOLI MCKEON RESIDENT Aug 01, 2024 04:55 NOREEN SHELTON MD Aug 01, 2024 09:32
[2024-08-01] MEDS ORDERED: DEXTROSE (50%) 50ML SYRG IV PRN (05:15)
[2024-08-01 07:12] LABS: Basophils # (auto) 0 10 ^3/uL (0-0.2); Basophils % (auto) 0.2 % (0.0-2.0); Eosinophils # (auto) 0.1 10 ^3/uL (0-0.8); Eosinophils % (auto) 0.8 % (0.0-7.0); Hematocrit 38.1 % (36.0-46.0); Hemoglobin 12.4 g/dL (12.2-16.2); Lymphocytes # (auto) 2.6 10 ^3/uL (0.4-5.4); Lymphocytes % (auto) 34.1 % (10.0-50.0); Mean Corpuscular Hemoglobin 29.4 pg (28.0-32.0); Mean Corpuscular Hgb Conc. 32.4 g/dL (32.0-36.0); Mean Corpuscular Volume 90.8 fL (80.0-100.0); Monocytes # (auto) 0.8 10 ^3/uL (0-1.3); Monocytes % (auto) 10.2 % (0.0-12.0); Neutrophils # (auto) 4.2 10 ^3/uL (1.6-8.6); Neutrophils % (auto) 54.7 % (37.0-80.0); Nucleated Red Blood Cells % 0.1 %; Platelet Count (auto) 178 10^3/uL (140-450); Red Cell Distribution Width 16.1 % (11.8-14.3); White Blood Cell 7.6 10^3/uL (4.4-10.8)
[2024-08-01 07:30] LABS: Alanine Aminotransferase 17 U/L (7-40); Albumin 3.8 g/dL (3.2-4.8); Alkaline Phosphatase 102 U/L (46-116); Anion Gap 7 (5-15); BUN/Creatinine Ratio 18.8 (10.0-20.0); Bilirubin, Total 0.4 mg/dL (0.2-1.0); Blood Urea Nitrogen 21 mg/dL (9-23); Calcium 9.6 mg/dL (8.7-10.4); Carbon Dioxide 27 mmol/L (20-31); Chloride 107 mmol/L (98-107); Potassium 3.9 mmol/L (3.5-5.1); Sodium 141 mmol/L (136-145)
[2024-08-01 07:31] LABS: Total Protein 5.9 g/dL (5.7-8.2)
[2024-08-01 07:32] LABS: Aspartate Aminotransferase 11 U/L (13-40); Glucose 126 mg/dL (74-106)
[2024-08-01 07:34] LABS: Folate (Folic Acid) 20.66 ng/mL (>5.38)
[2024-08-01] MEDS: ACCU-CHEK COMFORT CURVE STRIP VI SCH (08:22)
[2024-08-01] MEDS: InsuLIN REG 1unit/0.01ml Soln (100units/ml) SC SCH (08:28)
--- NOTE | 2024-08-01 08:31 | DVH ---
CLINICAL INDICATION: 79 years old, Female; rule out stroke. COMPARISON: None TECHNIQUE: Multisequence multiplanar MRI images of the brain were obtained without contrast. FINDINGS: No acute infarct or hemorrhage. No mass or midline shift. Ventricles and sulci are within normal limits. There are a few small subcentimeter T2/FLAIR hyperintense foci in the periventricular and subcortical white matter, which are nonspecific, but most likely sequela of mild chronic small-ve ssel ischemic disease. Basal cisterns are patent. Partially empty sella. Cerebellum, brainstem, and m idline structures are within normal limits. Mild mucosal thickening of the paranasal sinuses. Orbits are grossly unremarkable. IMPRESSION: 1. No evidence of acute intracranial abnormality. 2. Nonacute findings as detailed above.
--- NOTE | 2024-08-01 09:21 | ECG ---
[facility] Test Date: 2024-07-31 Test Time: 11:47:35 Pat Name: JEANNIE SIMMSDepartment: ER [facility] Gender: F Supervisor [employer]: EMILIANO : 1945 Requested By: LUNA MORELOS Order Number: [id number] Reading MD: Cayetano Welch Measurements Intervals [place] Rate: 85 P: 64 MA: 111 QRS: -21 QRSD: 106 T: 65 QT: 371 QTc: 442 Interpretive Statements Sinus rhythm Borderline short MA interval Borderline left axis deviation Low voltage, precordial leads Abnormal R-wave progression, early transition Baseline wander in lead(s) V4 Electronically Signed On 08-02-2024 17:46:14 PST by Cayetano Welch Please click the below link to view image of tracing.
[2024-08-01] MEDS: ENOXAPARIN SOD 40 MG/0.4 ML SYRINGE SC SCH (10:53)
[2024-08-01 14:53] LABS: Anion Gap 9 (5-15); Carbon Dioxide 28 mmol/L (20-31); Chloride 104 mmol/L (98-107); Potassium 3.9 mmol/L (3.5-5.1); Sodium 141 mmol/L (136-145)
[2024-08-01 14:54] LABS: Calcium 10.1 mg/dL (8.7-10.4)
[2024-08-01 14:59] LABS: BUN/Creatinine Ratio 15.1 (10.0-20.0); Blood Urea Nitrogen 18 mg/dL (9-23)
[2024-08-01 15:01] LABS: Glucose 197 mg/dL (74-106)
[2024-08-01] MEDS: LACTATED RINGER'S 500 ML IV ONE (15:04)
[2024-08-01 15:16] LABS: Lactic Acid w/Reflex 2.9 mmol/L (0.4-2.0)
[2024-08-01] MEDS: LACTATED RINGER'S 1,000 ML IV SCH (17:45)
--- NOTE | 2024-08-01 17:51 | DVHPN2 ---
Subjective 08/01-patient is endorsing that she was feeling improved, ambulating out of bed to the bathroom and back. She said that she still does feel some dizziness only when standing up. We will give more fluids as there was some concern of eye intravascular volume depletion and orthostatics are positive, we will repeat orthostatics with fluids and after Edinson hose. We will have to hold off some home medications. Reviewed: H&P Changes from previous H/P or p: No Changes General: Per HPI Eyes: No Pain, No Vision change, No Conjunctivae inflammation, No Eyelid inflammation, No Other, No Redness ENT: No Ear pain, No Ear discharge, No Nose pain, No Nose discharge, No Nose congestion, No Mouth pain, No Mouth swelling, No Throat pain, No Throat swelling, No Other Cardiovascular: No Chest Pain, No Palpitations, No Orthopnea, No Paroxysmal Noc. Dyspnea, No Edema, No Lt Headedness, No Other Respiratory: No Cough, No Dry, No Shortness of breath, No SOB with excertion, No Wheezing, No Hemoptysis, No Pleuritic Pain, No Sputum, No Other Gastrointestinal: No Nausea, No Vomiting, No Abdominal Pain, No Diarrhea, No Constipation, No Melena, No Hematochezia, No Other Genitourinary: No Dysuria, No Frequency, No Incontinence, No Hematuria, No Retention, No Other Musculoskeletal: No other, No neck pain, No shoulder pain, No arm pain, No back pain, No hand pain, No leg pain, No foot pain Skin: No Rash, No Lesions, No Jaundice, No Bruising, No Other Objective Vitals Vital Signs Date Time Temp Pulse Resp B/P (MAP) Pulse Ox O2 Delivery O2 Flow Rate FiO2 08/01/24 16:35 97.9 69 18 145/63 (90) 95 97.9 08/01/24 08:00 Room Air* 0 21 Intake/Output Intake and Output 08/01/24 07:00 Intake Total 120 ml Balance 120 ml Intake Oral 120 ml # Voids 2 # Bowel Movements 1 Exam GEN: Healthy appearing, well-developed, NAD. HEENT: NC/AT; dry mucous membranes. HINTS exam negative CV: RRR, no m/r/g. LUNGS: CTAB, no w/r/c. ABD: Soft, NT/ND, NBS, no masses or organomegaly. EXT: skin Warm, well perfused. no rashes. No clubbing, cyanosis, or edema. NEURO: Ambulating with no limitations. No focal deficits. Medications Current Medications Medications Dose Ordered Sig/Ryan Route Start Time Stop Time Status Last Admin Dose Admin Amoxicillin/ Clavulanate Potassium 875 mg Q12HR PO 08/01/24 01:00 08/01/24 10:53 875 MG Diagnostic Test (Pha) 1 strip IQ4HR 08/01/24 08:00 08/01/24 16:22 1 STRIP Insulin Human Regular IQ4HR SC 08/01/24 08:00 08/01/24 16:31 4 UNITS Dextrose 50 ml UD PRN IV 08/01/24 05:15 Enoxaparin Sodium 40 mg DAILY SC 08/01/24 10:00 08/01/24 10:53 40 MG Laboratory Results Laboratory Tests 08/01/24 06:30 08/01/24 13:50 Chemistry Test 08/01/24 06:30 08/01/24 13:50 Albumin 3.8 g/dL (3.2-4.8) Calcium Level 9.6 mg/dL (8.7-10.4) 10.1 mg/dL (8.7-10.4) Total Protein 5.9 g/dL (5.7-8.2) LFT Test 08/01/24 06:30 Alanine Aminotransferase (ALT) 17 U/L (7-40) Alkaline Phosphatase 102 U/L (46-116) Aspartate Amino Transferase (AST) 11 U/L (13-40) L Total Bilirubin 0.4 mg/dL (0.2-1.0) HgA1c, TSH Test 08/01/24 13:50 Hemoglobin A1c 7.6 % A1C (<5.7) H Urinalysis Test 07/31/24 11:42 Urine Color Light-yellow (Yellow) Urine Clarity Clear (Clear) Urine pH 5.5 (5.0-9.0) Urine Specific [place] 1.016 (1.001-1.035) Urine Protein Negative (Negative) Urine Ketones Negative (Negative) Urine Blood Negative /uL (Negative) Urine Nitrite Negative (Negative) Urine Bilirubin Negative (Negative) Urine Urobilinogen Normal mg/dL (Negative) Urine Leukocyte Esterase Negative /uL (Negative) Urine RBC <1 /hpf (0 - 4) Urine Microscopic WBC 5 /HPF (0-5) Urine Squamous Epithelial Cells Few /hpf (<5) Urine Bacteria None seen /hpf (None Seen) Urine Glucose 4+ mg/dL (Normal) H Labs and/or images reviewed: Labs reviewed by me, Image(s) reviewed by me Assessment/Plan Assessment/Plan 08/01-patient is endorsing that she was feeling improved, ambulating out of bed to the bathroom and back. She said that she still does feel some dizziness only when standing up. We will give more fluids as there was some concern of eye intravascular volume depletion and orthostatics are positive, we will repeat orthostatics with fluids and after Edinson hose. We will have to hold off some home medications. 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 -UA with glucose +4 -RPR pending -orthostatics positive x2 -lactic acidosis elevated to 2.6 - A1c 7.6, diabetes worsening - hold home blood pressure medications, hold out IV Lasix and diuresis, give some gentle fluids. - Meclizine p.r.n. for dizziness - Amoxicillin for possible all mastoiditis, will use unasyn while inpatient. - sliding scale significant for diabetes - Neurology consulted and following, stroke ruled out, we will hold off further aspirin. - Edinson hose stockings while ambulating We will repeat orthostatics tomorrow 07/24 9:00 a.m.. And we will re-evaluate Diet diabetic DVT prophylaxis-Lovenox GI prophylaxis tolerating diet Med surge Full code Plan discussed with: Patient My Orders Orders - LIZETTE MOLINA MD Procedure Category Date Status Time Pt Request For Service PT 08/01/24 Logged 13:26 Date of Service: Aug 01, 2024 Billing Provider: LIZETTE MOLINA MD Common Visit Codes: [id number] INP/OBS CARE(HIGH) LIZETTE MOLIAN MD Aug 01, 2024 17:50
[2024-08-01] MEDS: AMPICILLIN & SULBACTAM SODIUM 3 GM in SODIUM CHL 0.9% 100 ML IV SCH (21:24)
--- NOTE | 2024-08-01 22:40 | DVHINCON2 ---
Date of service: Aug 01, [address] Villegas Reason for Consultation Ataxia History of Present Illness Ms. Branden Chen is a 79 years old right-handed female with a history of hypertension, diabetes, COPD, left knee pain, she was brought to the [facility] on 07/31/2024 with a chief complaint of dizziness since . At this time, she was alert and fully oriented, she provided the fo llowing history With no obvious reason, the patient was developed dizziness, a feeling of constant unsteadiness or swinging as long as she was walking, but improve after she stops walking, there was no associated vision changes, nausea, vomiting, sweating, focal weakness numbness. She has not had similar problems previously One year ago, the patient was had dizziness, in that everything was spinning as long as she was walking, but improved when she was resting in bed (she had ER is on 01/13/2023 for dizziness/spinning sensation) Urinalysis, 07/31/2024: WBC: 5, urine leukocyte esterase: Negative CBC, 08/01/2024: Unremarkable BUN/CR, 08/01/2024: 18/1.19 HGB A1c, 08/01/2024: 7.6 Lactic acid, 08/01/2024: 2.9, 2.2 Liver function tests, 08/01/2024: Unremarkable Vitamin B12, 08/01/2024: 484 Folic acid, 08/01/2024: 20.66 TSH, 07/31/2024: 1.48 MRI head, 08/01/2024: 1. No evidence of acute intracranial abnormality. 2. Nonacute findings as detailed above Past Medical History Hypertension, diabetes, COPD, left knee pain Past Surgical History Denies all surgeries Family History: Diabetes mellitus G8 MOTHER Family History Diabetes Social History Smoker: Non-Smoker Alcohol: Denies ETOH Use Drugs: Denies Drug Use Lives In: Home Allergies: Coded Allergies: NO KNOWN ALLERGIES (Unverified , 05/08/22) Home Meds Active Scripts Meclizine HCl (Meclizine) 25 Mg Chw, 25 MG PO TIDP PRN for 15 Days, #45 CHW Prov:EDWIGE VILLEDA MD 01/17/23 Reported Medications Metoprolol Succinate (Metoprolol Succinate Er) 50 Mg Tab, 1 TAB PO DAILY 01/17/23 Furosemide (Furosemide) 20 Mg Tab, 1 TAB PO DAILY 01/17/23 Atorvastatin Calcium (ATORVASTATIN CALCIUM) 40 Mg Tab, 1 TAB PO DAILY 01/15/23 Losartan Potassium (Losartan Potassium) 100 Mg Tab, 1 TAB PO DAILY 01/15/23 Macitentan (Opsumit) 10 Mg Tab 01/15/23 Aspirin (Aspirin Low Dose) 81 Mg Tab, 1 TAB PO DAILY 01/15/23 Metformin Hydrochloride (Metformin Hcl) 500 Mg Tab, 1 TAB PO BID 01/15/23 Current Medications Current Medications Medications (Trade) Dose Ordered Sig/Ryan Route PRN Reason Start Time Stop Time Status Last Admin Amoxicillin/ Clavulanate Potassium (Augmentin Tablet) 875 mg Q12HR PO 08/01/24 01:00 08/01/24 17:48 DC 08/01/24 10:53 Diagnostic Test (Pha) (Accu-Chek Comfort Curve T) 1 strip IQ4HR 08/01/24 08:00 08/01/24 19:53 Insulin Human Regular (InsuLIN R) IQ4HR SC 08/01/24 08:00 08/01/24 20:04 Dextrose 50 ml UD PRN IV Blood Sugar LESS THAN 60 08/01/24 05:15 Enoxaparin Sodium (Lovenox) 40 mg DAILY SC 08/01/24 10:00 08/01/24 10:53 Ampicillin Sodium/ Sulbactam Sodium 3 gm/Sodium Chloride 100 ml @ 100 mls/hr Q6H IV 08/01/24 20:00 08/01/24 21:24 Lactated Ringer's 1,000 ml @ 100 mls/hr Q10H IV 08/01/24 17:45 08/02/24 03:44 Review of Systems As above, the other systems are negative Vital Signs Vital Signs Date Time Temp Pulse Resp B/P (MAP) Pulse Ox O2 Delivery O2 Flow Rate FiO2 08/01/24 21:00 98.1 90 20 141/78 (99) 93 98.1 08/01/24 20:00 Room Air* 0 21 Physical Exam GENERAL EXAM: General: the patient is well developed and nourished. No acute distress. HEENT: Normocephalic, neck is supple, no carotid bruits. No mass. RESPIRATORY: Normal respiratory effort with symmetrical lung expansion. Lungs clear to auscultation. CARDIOVASCULAR: Regular rate and rhythm with no murmurs. S1, S2. ABDOMEN: Soft, nontender, normal bowel sound NEUROLOGICAL: MENTAL STATUS: Awake and alert. Oriented to person, place, time and general circumstances. Able to give personal history SPEECH, LANGUAGE, HIGHER CORTICAL FUNCTION: no aphasia or dysathria. CRANIAL NERVES: #2: Intact visual gandhi to confrontation. The optic discs were sharp #3,4,6: Pupils are equal, round and reactive. EOMs full and conjugate. No nystagmus. #5: Facial sensation intact in all three divisions bilaterally. Mandibular strength intact. #7: Facial muscles symmetrical and strength intact. #8: Hearing grossly normal to voice. #9,10: Uvula and soft palate rise in the midline. Swallow and voice are normal. #11: Trapezius and sternomastoid strength intact bilaterally. #12: Tongue midline. No fasciculations or atrophy. SENSATION: Sensation to touch and pinprick is normal. MOTOR: Normal tone in the upper and lower extremity. Normal muscle bulk. No fasciculations. No abnormal movements or posturing. Muscle strength of the major groups in the upper extremities is 5/5. Muscle strength of the major groups in the lower extremities is 5/5. REFLEXES: Deep tendon reflexes normal and symmetrical. No pathological reflexes. CEREBELLAR/COORDINATION: Finger to nose is normal bilaterally. GAIT/STATION: deferred. Labs/Diagnostic Data Labs Test 08/01/24 19:39 08/01/24 15:47 08/01/24 13:50 08/01/24 06:30 Range/Units POC Glucose 155 H 70-106 mg/dl Lactic Acid Level 2.2 *H 0.4-2.0 mmol/L Sodium Level 141 136-145 mmol/L Potassium Level 3.9 3.5-5.1 mmol/L Chloride Level 104 98-107 mmol/L Carbon Dioxide Level 28 20-31 mmol/L Anion Gap 9 5-15 Blood Urea Nitrogen 18 9-23 mg/dL Creatinine 1.19 H 0.550-1.02 mg/dL Glomerular Filtration Rate Calc 47 >90 mL/min BUN/Creatinine Ratio 15.1 10.0-20.0 Serum Glucose 197 H 74-106 mg/dL Hemoglobin A1c 7.6 H <5.7 % A1C Calcium Level 10.1 8.7-10.4 mg/dL White Blood Count 7.6 4.4-10.8 10^3/uL Red Blood Count 4.20 4.0-5.20 10^6/uL Hemoglobin 12.4 12.2-16.2 g/dL Hematocrit 38.1 36.0-46.0 % Mean Corpuscular Volume 90.8 80.0-100.0 fL Mean Corpuscular Hemoglobin 29.4 28.0-32.0 pg Mean Corpuscular Hemoglobin Concent 32.4 32.0-36.0 g/dL Red Cell Distribution Width 16.1 H 11.8-14.3 % Platelet Count 178 140-450 10^3/uL Mean Platelet Volume 9.3 6.9-10.8 fL Neutrophils (%) (Auto) 54.7 37.0-80.0 % Lymphocytes (%) (Auto) 34.1 10.0-50.0 % Monocytes (%) (Auto) 10.2 0.0-12.0 % Eosinophils (%) (Auto) 0.8 0.0-7.0 % Basophils (%) (Auto) 0.2 0.0-2.0 % Neutrophils # (Auto) 4.2 1.6-8.6 10 ^3/uL Lymphocytes # (Auto) 2.6 0.4-5.4 10 ^3/uL Monocytes # (Auto) 0.8 0-1.3 10 ^3/uL Eosinophils # (Auto) 0.1 0-0.8 10 ^3/uL Basophils # (Auto) 0 0-0.2 10 ^3/uL Nucleated Red Blood Cells 0.1 % Total Bilirubin 0.4 0.2-1.0 mg/dL Aspartate Amino Transferase (AST) 11 L 13-40 U/L Alanine Aminotransferase (ALT) 17 7-40 U/L Alkaline Phosphatase 102 46-116 U/L Total Protein 5.9 5.7-8.2 g/dL Albumin 3.8 3.2-4.8 g/dL Vitamin B12 Level 484 211-911 pg/mL Folic Acid 20.66 >5.38 ng/mL Test 07/31/24 11:45 07/31/24 11:42 Range/Units Troponin I High Sensitivity < 3 L </=34 ng/L Thyroid Stimulating Hormone (TSH) 1.48 0.55-4.78 uIU/mL Urine Color Light-yellow Yellow Urine Clarity Clear Clear Urine pH 5.5 5.0-9.0 Urine Specific [place] 1.016 1.001-1.035 Urine Protein Negative Negative Urine Ketones Negative Negative Urine Blood Negative Negative /uL Urine Nitrite Negative Negative Urine Bilirubin Negative Negative Urine Urobilinogen Normal Negative mg/dL Urine Leukocyte Esterase Negative Negative /uL Urine RBC <1 0 - 4 /hpf Urine Microscopic WBC 5 0-5 /HPF Urine Squamous Epithelial Cells Few <5 /hpf Urine Bacteria None seen None Seen /hpf Urine Glucose 4+ H Normal mg/dL Assessment Dizziness/unsteady gait, unremarkable MR brain, etiology unclear Reported history of vertigo Plan/Recommendation Monitoring Supportive treatment Telemetry DVT prophylaxis Up to chair Physical therapy More recommendation per clinical course Progress: Poor This medical document was created using an electronic medical record system with [employer] dictation system. Although this document has been carefully reviewed, there may still be some phonetic and typographical errors. These areas are purely typographical due to imperfections of the software programs, and do not reflect any compromise in the patient's medical care. Plan discussed with: Patient, Other DANITA GARCIA MD Aug 01, 2024 22:40
[2024-08-02 01:00] VITALS: BP 143/62; PULSE 80; RESP 20; TEMP 97.5; O2SAT 93
[2024-08-02 05:00] VITALS: BP 120/59; PULSE 74; RESP 20; TEMP 97.4; O2SAT 95
[2024-08-02 06:29] LABS: Basophils # (auto) 0 10 ^3/uL (0-0.2); Basophils % (auto) 0.1 % (0.0-2.0); Eosinophils # (auto) 0.1 10 ^3/uL (0-0.8); Eosinophils % (auto) 0.7 % (0.0-7.0); Hematocrit 38.7 % (36.0-46.0); Hemoglobin 12.6 g/dL (12.2-16.2); Lymphocytes # (auto) 2.6 10 ^3/uL (0.4-5.4); Lymphocytes % (auto) 36.6 % (10.0-50.0); Mean Corpuscular Hemoglobin 29.5 pg (28.0-32.0); Mean Corpuscular Hgb Conc. 32.7 g/dL (32.0-36.0); Mean Corpuscular Volume 90.2 fL (80.0-100.0); Monocytes # (auto) 0.6 10 ^3/uL (0-1.3); Monocytes % (auto) 8.6 % (0.0-12.0); Neutrophils # (auto) 3.9 10 ^3/uL (1.6-8.6); Platelet Count (auto) 171 10^3/uL (140-450); Red Blood Cells 4.29 10^6/uL (4.0-5.20); Red Cell Distribution Width 15.8 % (11.8-14.3); White Blood Cell 7.2 10^3/uL (4.4-10.8)
[2024-08-02 06:56] LABS: Alkaline Phosphatase 88 U/L (46-116)
[2024-08-02 06:57] LABS: Alanine Aminotransferase 14 U/L (7-40); Albumin 3.7 g/dL (3.2-4.8); Anion Gap 10 (5-15); BUN/Creatinine Ratio 12.8 (10.0-20.0); Bilirubin, Total 0.4 mg/dL (0.2-1.0); Blood Urea Nitrogen 12 mg/dL (9-23); Calcium 9.4 mg/dL (8.7-10.4); Carbon Dioxide 25 mmol/L (20-31); Potassium 3.9 mmol/L (3.5-5.1); Sodium 143 mmol/L (136-145); Total Protein 5.9 g/dL (5.7-8.2)
[2024-08-02 06:58] LABS: Aspartate Aminotransferase 10 U/L (13-40); Chloride 108 mmol/L (98-107); Glucose 116 mg/dL (74-106)
[2024-08-02 08:00] VITALS: PULSE 79; RESP 16; O2SAT 95
[2024-08-02 08:07] LABS: RPR Non Reactive (Non Reactive)
[2024-08-02 09:00] VITALS: BP 134/78; PULSE 79; RESP 16; TEMP 98.3; O2SAT 95
[2024-08-02] MEDS: PANTOPRAZOLE 40 MG/10 ML VIAL INJ IV SCH (10:05)
[2024-08-02 13:00] VITALS: BP 130/79; PULSE 87; RESP 20; TEMP 98.1; O2SAT 94
[2024-08-02] MEDS ORDERED: AUG875T PO (16:43)
--- NOTE | 2024-08-02 16:56 | DVHDS2 ---
Discharge Summary Date of Admission Jul 31, 2024 at 21:25 Date of Discharge: Aug 02, 2024 Labs/Diagnostic Data: Laboratory Results Test 08/02/24 16:05 08/02/24 05:36 08/02/24 05:26 08/01/24 13:50 POC Glucose 159 mg/dl (70-106) White Blood Count 7.2 10^3/uL (4.4-10.8) Red Blood Count 4.29 10^6/uL (4.0-5.20) Hemoglobin 12.6 g/dL (12.2-16.2) Hematocrit 38.7 % (36.0-46.0) Mean Corpuscular Volume 90.2 fL (80.0-100.0) Mean Corpuscular Hemoglobin 29.5 pg (28.0-32.0) Mean Corpuscular Hemoglobin Concent 32.7 g/dL (32.0-36.0) Red Cell Distribution Width 15.8 % (11.8-14.3) Platelet Count 171 10^3/uL (140-450) Mean Platelet Volume 9.3 fL (6.9-10.8) Neutrophils (%) (Auto) 54.0 % (37.0-80.0) Lymphocytes (%) (Auto) 36.6 % (10.0-50.0) Monocytes (%) (Auto) 8.6 % (0.0-12.0) Eosinophils (%) (Auto) 0.7 % (0.0-7.0) Basophils (%) (Auto) 0.1 % (0.0-2.0) Neutrophils # (Auto) 3.9 10 ^3/uL (1.6-8.6) Lymphocytes # (Auto) 2.6 10 ^3/uL (0.4-5.4) Monocytes # (Auto) 0.6 10 ^3/uL (0-1.3) Eosinophils # (Auto) 0.1 10 ^3/uL (0-0.8) Basophils # (Auto) 0 10 ^3/uL (0-0.2) Nucleated Red Blood Cells 0.0 % Sodium Level 143 mmol/L (136-145) Potassium Level 3.9 mmol/L (3.5-5.1) Chloride Level 108 mmol/L (98-107) Carbon Dioxide Level 25 mmol/L (20-31) Anion Gap 10 (5-15) Blood Urea Nitrogen 12 mg/dL (9-23) Creatinine 0.94 mg/dL (0.550-1.02) Glomerular Filtration Rate Calc 62 mL/min (>90) BUN/Creatinine Ratio 12.8 (10.0-20.0) Serum Glucose 116 mg/dL (74-106) Calcium Level 9.4 mg/dL (8.7-10.4) Total Bilirubin 0.4 mg/dL (0.2-1.0) Aspartate Amino Transferase (AST) 10 U/L (13-40) Alanine Aminotransferase (ALT) 14 U/L (7-40) Alkaline Phosphatase 88 U/L (46-116) Total Protein 5.9 g/dL (5.7-8.2) Albumin 3.7 g/dL (3.2-4.8) Lactic Acid Level 1.6 mmol/L (0.4-2.0) Hemoglobin A1c 7.6 % A1C (<5.7) Test 08/01/24 06:30 07/31/24 11:45 07/31/24 11:42 Vitamin B12 Level 484 pg/mL (211-911) Folic Acid 20.66 ng/mL (>5.38) Rapid Plasma Reagin Non reactive (Non Reactive) Troponin I High Sensitivity < 3 ng/L (</=34) Thyroid Stimulating Hormone (TSH) 1.48 uIU/mL (0.55-4.78) Urine Color Light-yellow (Yellow) Urine Clarity Clear (Clear) Urine pH 5.5 (5.0-9.0) Urine Specific [place] 1.016 (1.001-1.035) Urine Protein Negative (Negative) Urine Ketones Negative (Negative) Urine Blood Negative /uL (Negative) Urine Nitrite Negative (Negative) Urine Bilirubin Negative (Negative) Urine Urobilinogen Normal mg/dL (Negative) Urine Leukocyte Esterase Negative /uL (Negative) Urine RBC <1 /hpf (0 - 4) Urine Microscopic WBC 5 /HPF (0-5) Urine Squamous Epithelial Cells Few /hpf (<5) Urine Bacteria None seen /hpf (None Seen) Urine Glucose 4+ mg/dL (Normal) Other Laboratory Tests 08/02/24 05:36 Brief Hx & Hospital Course: HPI: 79-year-old female with a past medical history of hypertension, diabetes mellitus, dyslipidemia, pulmonary hypertension, vertigo, anxiety, and chronic kidney disease presents to the ED with a four-day history of feeling as if she is leaning to one side. The patient initially described this as dizziness but later clarified that she perceives a lateral imbalance rather than true vertigo. She denies headache, nausea, vomiting, focal weakness, numbness, fever, recent infections, or any new medications. No prior similar episodes. No recent falls or trauma. summary: On initial presentation there is concern for stroke and MRI is done. MRI negative for acute stroke . CT head negative for intracranial hemorrhage, but does show some signs of mastoiditis on the right side. UA with glucose +4 . RPR pending. orthostatics positive x2. lactic acidosis elevated to 2.6. A1c 7.6, diabetes worsening mildly. For mastoiditis Antibiotics were started. Patient was noted to have lactic acidosis which resolved with IV fluids. Orthostasis also resolved after fluid resuscitation. Metformin is stopped due to lactic acidosis. The presentation in conditions likely all due to volume depletion, medication changes are made vital signs repeated in 0 2 was repeated on 08/02 which are now negative,. Vicky hose is started, antihypertensives were stopped, IV fluids given,, Lasix will be held until PCP. Vital signs stable on 08/02/2024, plan to discharge as below. 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 Patient was counseled about treatment plan, medications, possible side effects, patientverbalized understanding. All questions were answered to the best of my ability. This discharge took greater then 30 minutes in planning, reviewing documentation, counseling the patient, and discussing with other team members." Date of Service: Aug 02, 2024 Billing Provider: LIZETTE MOLINA MD Common Visit Codes: [id number] INP/OBS CARE(HIGH) LIZETTE MOLINA MD Aug 02, 2024 16:56
[2024-08-02 17:00] VITALS: BP 131/56; PULSE 69; RESP 20; TEMP 97.6; O2SAT 92
== END 2024-08-02 18:23 | disposition home or self-care (01) | DRG 92 ==
LOC: ER 11:26 → OVERFLOW 21:25 → WEST WING 22:40
PROVIDERS: ADMIT Student in an Organized Health Care Education/Training Program; ATTEND Student in an Organized Health Care Education/Training Program
DX: R26.89 Other abnormalities of gait and mobility (principal); E87.20 Acidosis, unspecified; N17.9 Acute kidney failure, unspecified; R81 Glycosuria; N18.9 Chronic kidney disease, unspecified; H70.90 Unspecified mastoiditis, unspecified ear; I12.9 Hypertensive chronic kidney disease with stage 1 through stage 4 chronic kidney disease, or unspecified chronic kidney disease; J44.9 Chronic obstructive pulmonary disease, unspecified; E78.5 Hyperlipidemia, unspecified; E11.65 Type 2 diabetes mellitus with hyperglycemia; E11.22 Type 2 diabetes mellitus with diabetic chronic kidney disease; T50.915A Adverse effect of multiple unspecified drugs, medicaments and biological substances, initial encounter; I27.20 Pulmonary hypertension, unspecified; Z79.84 Long term (current) use of oral hypoglycemic drugs; Z79.899 Other long term (current) drug therapy; Z83.3 Family history of diabetes mellitus; Y92.89 Other specified places as the place of occurrence of the external cause
CPT/HCPCS: 36415; 70450; 70551; 71045; 80048; 80053; 81001; 82607; 82746; 82962; 83036; 83605; 84443; 84484; 85025; 86592; 93005; 97163; G0378; J1815; J2470

== ENCOUNTER → 2024-09-08 | Outpatient (CLI) | payer OTHER, MEDICAID ==
[~2024-09-08] MED LIST changes: +EMPA1TAB3 PO; -FURO20TA4 PO; -METF-370 PO; +PANT40TA2 PO; +SITA100T7 PO
[2024-09-08 06:52] LABS: Urine Bacteria None Seen /hpf (None Seen)
[2024-09-08 07:11] LABS: Urine Blood Negative /uL (Negative); Urine Budding Yeast OCCASIONAL /hpf (None Seen); Urine Clarity Clear (Clear); Urine Color Light-Yellow (Yellow); Urine Protein, UAD Negative (Negative); Urine Squamous Epithelial Cell FEW /hpf (<5); Urine Urobilinogen Normal (Negative); Urine WBC 1 /HPF (0-5)
[2024-09-08 07:20] LABS: Basophils # (auto) 0 10 ^3/uL (0-0.2); Basophils % (auto) 0.2 % (0.0-2.0); Eosinophils # (auto) 0.1 10 ^3/uL (0-0.8); Eosinophils % (auto) 1.1 % (0.0-7.0); Hematocrit 38.1 % (36.0-46.0); Hemoglobin 13.1 g/dL (12.2-16.2); Lymphocytes # (auto) 3.5 10 ^3/uL (0.4-5.4); Lymphocytes % (auto) 41.8 % (10.0-50.0); Mean Corpuscular Hemoglobin 31.3 pg (28.0-32.0); Mean Corpuscular Hgb Conc. 34.3 g/dL (32.0-36.0); Mean Corpuscular Volume 91.2 fL (80.0-100.0); Monocytes # (auto) 0.9 10 ^3/uL (0-1.3); Monocytes % (auto) 10.3 % (0.0-12.0); Neutrophils # (auto) 3.9 10 ^3/uL (1.6-8.6); Neutrophils % (auto) 46.6 % (37.0-80.0); Nucleated Red Blood Cells % 0.1 %; Platelet Count (auto) 187 10^3/uL (140-450); Red Blood Cells 4.17 10^6/uL (4.0-5.20); Red Cell Distribution Width 14.3 % (11.8-14.3); White Blood Cell 8.4 10^3/uL (4.4-10.8)
[2024-09-08 07:26] LABS: Creatinine, Urine 50.12 mg/dL (30.0-125.0)
[2024-09-08 07:29] LABS: Alanine Aminotransferase 20 U/L (7-40); Albumin 4.4 g/dL (3.2-4.8); Anion Gap 7 (5-15); Aspartate Aminotransferase 13 U/L (13-40); BUN/Creatinine Ratio 16.2 (10.0-20.0); Blood Urea Nitrogen 17 mg/dL (9-23); Carbon Dioxide 28 mmol/L (20-31); Chloride 106 mmol/L (98-107); Cholesterol 179 mg/dL (< 200); LDL Cholesterol 94 mg/dL (< 100); Sodium 141 mmol/L (136-145); Total Protein 6.9 g/dL (5.7-8.2)
[2024-09-08 07:30] LABS: Bilirubin, Total 0.4 mg/dL (0.2-1.0); HDL Cholesterol 45 mg/dL (40-59)
[2024-09-08 07:34] LABS: Alkaline Phosphatase 120 U/L (46-116); Glucose 131 mg/dL (74-106); Triglycerides 243 mg/dL (< 150)
== END | disposition home or self-care (01) ==
LOC: LAB 06:09
PROVIDERS: ATTEND Student in an Organized Health Care Education/Training Program
DX: I10 Essential (primary) hypertension (principal); E11.9 Type 2 diabetes mellitus without complications; E03.8 Other specified hypothyroidism
CPT/HCPCS: 36415; 80053; 80061; 81001; 82043; 82570; 83036; 84439; 84443; 85025

== ENCOUNTER → 2024-09-10 | Day surgery (SDC) | payer OTHER, MEDICAID ==
[2024-09-08 07:10] LABS: Urine Bacteria FEW /hpf (None Seen); Urine Blood Negative /uL (Negative); Urine Budding Yeast OCCASIONAL /hpf (None Seen); Urine Clarity Clear (Clear); Urine Color Light-Yellow (Yellow); Urine Protein, UAD Negative (Negative); Urine Squamous Epithelial Cell FEW /hpf (<5); Urine Urobilinogen Normal (Negative); Urine WBC < 1 /HPF (0-5)
[2024-09-08 07:22] LABS: Basophils # (auto) 0 10 ^3/uL (0-0.2); Basophils % (auto) 0.1 % (0.0-2.0); Eosinophils # (auto) 0.1 10 ^3/uL (0-0.8); Eosinophils % (auto) 1.2 % (0.0-7.0); Hematocrit 38.2 % (36.0-46.0); Hemoglobin 13.2 g/dL (12.2-16.2); Lymphocytes # (auto) 3.5 10 ^3/uL (0.4-5.4); Lymphocytes % (auto) 42.9 % (10.0-50.0); Mean Corpuscular Hemoglobin 31.5 pg (28.0-32.0); Mean Corpuscular Hgb Conc. 34.6 g/dL (32.0-36.0); Mean Corpuscular Volume 91.2 fL (80.0-100.0); Monocytes # (auto) 0.8 10 ^3/uL (0-1.3); Neutrophils # (auto) 3.7 10 ^3/uL (1.6-8.6); Neutrophils % (auto) 45.8 % (37.0-80.0); Platelet Count (auto) 187 10^3/uL (140-450); Red Blood Cells 4.19 10^6/uL (4.0-5.20); Red Cell Distribution Width 14.5 % (11.8-14.3); White Blood Cell 8.1 10^3/uL (4.4-10.8)
[2024-09-08 07:29] LABS: INR 0.94 (0.9-1.15); Partial Thromboplastin Time 26.2 SEC (24.5-34.5)
[2024-09-08 07:34] LABS: Alanine Aminotransferase 18 U/L (7-40); Albumin 4.4 g/dL (3.2-4.8); Anion Gap 8 (5-15); BUN/Creatinine Ratio 16.7 (10.0-20.0); Blood Urea Nitrogen 18 mg/dL (9-23); Calcium 10.2 mg/dL (8.7-10.4); Carbon Dioxide 28 mmol/L (20-31); Chloride 105 mmol/L (98-107); Sodium 141 mmol/L (136-145)
[2024-09-08 07:35] LABS: Bilirubin, Total 0.4 mg/dL (0.2-1.0)
[2024-09-08 07:36] LABS: Alkaline Phosphatase 120 U/L (46-116); Aspartate Aminotransferase 13 U/L (13-40); Glucose 131 mg/dL (74-106)
[~2024-09-10] VITALS: Ht 134.6 cm; Wt 82.6 kg
[~2024-09-10] MED LIST changes: +BUPIVACAINE W/ EPINEPH 0.5% MPF 30ML VIAL IJ ONE; +CEFEPIME 1GM/ 50ML 50 ML IV ONE; +GLYCOPYRROLATE 0.2 MG/ML 1ML VIAL ONE; +KETAMINE 50mg/ML 1ml syringe ONE; +MIDAZOLAM HCL 2MG/2ML 2ml VIAL (1mg/ml) ONE; +MORPHINE SULF PF 5 MG/10 ML VIAL ONE; +ONDANSETRON HCL 4 MG/2 ML VIAL ONE; +PROPOFOL 10 MG/ML 20 ML IV ONE; +TRANEXAMIC ACID 10 ML ONE; +VANCOMYCIN HCL 1000 MG VL ONE; +ceFAZolin 1GM/50ML 100 ML IV ONE; +ePHEDrine SULFATE 50 MG/ML AMP ONE; +fentaNYL CITRATE 100 MCG/2 ML VL ONE
[2024-09-10 10:50] VITALS: BP 152/77; PULSE 81; RESP 18; TEMP 98.1; O2SAT 96
== END | disposition home or self-care (01) ==
LOC: SUR 08:32
PROVIDERS: ATTEND Orthopaedic Surgery
DX: M17.12 Unilateral primary osteoarthritis, left knee (principal); Z53.8 Procedure and treatment not carried out for other reasons; Z79.82 Long term (current) use of aspirin; Z79.899 Other long term (current) drug therapy
CPT/HCPCS: 36415; 80053; 81001; 82962; 85025; 85610; 85730; 86850; 86900; 86901; J0690; J0692; J2270; J2405; J2704; J3010; J2250

== ENCOUNTER 2024-10-15 06:01 | Inpatient (IN) | payer OTHER, MEDICAID ==
[2024-10-13 07:24] LABS: Urine Bacteria None Seen /hpf (None Seen)
[2024-10-13 08:11] LABS: Basophils # (auto) 0 10 ^3/uL (0-0.2); Basophils % (auto) 0.2 % (0.0-2.0); Eosinophils # (auto) 0.1 10 ^3/uL (0-0.8); Eosinophils % (auto) 0.7 % (0.0-7.0); Hematocrit 40.1 % (36.0-46.0); Hemoglobin 13.5 g/dL (12.2-16.2); Lymphocytes # (auto) 3.5 10 ^3/uL (0.4-5.4); Lymphocytes % (auto) 40.7 % (10.0-50.0); Mean Corpuscular Hemoglobin 30.2 pg (28.0-32.0); Mean Corpuscular Hgb Conc. 33.8 g/dL (32.0-36.0); Mean Corpuscular Volume 89.4 fL (80.0-100.0); Monocytes # (auto) 0.9 10 ^3/uL (0-1.3); Monocytes % (auto) 10.6 % (0.0-12.0); Neutrophils # (auto) 4.1 10 ^3/uL (1.6-8.6); Neutrophils % (auto) 47.8 % (37.0-80.0); Nucleated Red Blood Cells % 0.1 %; Platelet Count (auto) 191 10^3/uL (140-450); Red Blood Cells 4.48 10^6/uL (4.0-5.20); Red Cell Distribution Width 13.5 % (11.8-14.3); White Blood Cell 8.7 10^3/uL (4.4-10.8)
[2024-10-13 08:29] LABS: Alanine Aminotransferase 18 U/L (7-40); Anion Gap 11 (5-15); Carbon Dioxide 28 mmol/L (20-31); Chloride 103 mmol/L (98-107); Potassium 3.9 mmol/L (3.5-5.1); Sodium 142 mmol/L (136-145)
[2024-10-13 08:30] LABS: Alkaline Phosphatase 121 U/L (46-116); BUN/Creatinine Ratio 17.2 (10.0-20.0); Blood Urea Nitrogen 21 mg/dL (9-23); Calcium 10.6 mg/dL (8.7-10.4); Glucose 144 mg/dL (74-106)
[2024-10-13 08:31] LABS: Total Protein 7.2 g/dL (5.7-8.2)
[2024-10-13 08:32] LABS: Albumin 4.4 g/dL (3.2-4.8); Aspartate Aminotransferase 15 U/L (13-40); Bilirubin, Total 0.4 mg/dL (0.2-1.0)
[2024-10-13 08:46] LABS: INR 0.97 (0.9-1.15); Partial Thromboplastin Time 26.4 SEC (24.5-34.5); Prothrombin Time 10.3 sec (9.3-11.8)
[2024-10-13 09:40] LABS: Urine Blood Negative /uL (Negative); Urine Clarity Clear (Clear); Urine Color Light-Yellow (Yellow); Urine Protein, UAD Negative (Negative); Urine Specific Gravity 1.012 (1.001-1.035); Urine Squamous Epithelial Cell FEW /hpf (<5); Urine Urobilinogen Normal (Negative); Urine WBC 3 /HPF (0-5); Urine pH 5.5 (5.0-9.0)
[~2024-10-15] VITALS: Ht 139.7 cm; Wt 90.5 kg
[~2024-10-15 06:01] MED LIST changes: -BUPIVACAINE W/ EPINEPH 0.5% MPF 30ML VIAL IJ ONE; -CEFEPIME 1GM/ 50ML 50 ML IV ONE; -GLYCOPYRROLATE 0.2 MG/ML 1ML VIAL ONE; -KETAMINE 50mg/ML 1ml syringe ONE; -MIDAZOLAM HCL 2MG/2ML 2ml VIAL (1mg/ml) ONE; -MORPHINE SULF PF 5 MG/10 ML VIAL ONE; -ONDANSETRON HCL 4 MG/2 ML VIAL ONE; -PROPOFOL 10 MG/ML 20 ML IV ONE; -TRANEXAMIC ACID 10 ML ONE; -VANCOMYCIN HCL 1000 MG VL ONE; -ceFAZolin 1GM/50ML 100 ML IV ONE; -ePHEDrine SULFATE 50 MG/ML AMP ONE; -fentaNYL CITRATE 100 MCG/2 ML VL ONE
[2024-10-15] MEDS: ceFAZolin 2 GM/D5W50ml 50 ML IV ONE (06:27)
[2024-10-15] MEDS: ACETAMINOPHEN IV 100 ML IV ONE (06:43)
[2024-10-15] MEDS: CELECOXIB 100 MG CAP ONE (06:43)
[2024-10-15] MEDS: GABAPENTIN 300 MG CAP ONE (06:43)
[2024-10-15] MEDS ORDERED: GLYCOPYRROLATE 0.2 MG/ML 1ML VIAL ONE (06:51)
[2024-10-15] MEDS ORDERED: PROPOFOL 10 MG/ML 20 ML IV ONE ×2 (06:51→09:26)
[2024-10-15] MEDS ORDERED: DexAMETHasone SOD PHOS 10MG/1ML VIAL INJ ONE ×2 (06:52→08:11)
[2024-10-15] MEDS ORDERED: KETOROLAC TROMETH 30 MG/ML 1ML VIAL ONE (06:52)
[2024-10-15] MEDS ORDERED: LIDOCAINE 1% INJ PF 5ML AMP ONE (06:52)
[2024-10-15] MEDS ORDERED: ONDANSETRON HCL 4 MG/2 ML VIAL ONE (06:52)
[2024-10-15] MEDS ORDERED: KETAMINE 50mg/ML 1ml syringe ONE (06:55)
[2024-10-15] MEDS ORDERED: fentaNYL CITRATE 100 MCG/2 ML VL ONE (06:55)
[2024-10-15] MEDS: VANCOMYCIN HCL 1000 MG VL ONE (06:59)
[2024-10-15] MEDS: BUPIVACAINE 0.25% INJ 50ML VIAL ONE ×2 (07:01→07:10)
[2024-10-15] MEDS: TRANEXAMIC ACID 20 ML ONE (07:01)
[2024-10-15] MEDS: BUPIVACAINE HCL 50 ML ONE (07:10)
[2024-10-15] MEDS: CEFEPIME 1GM/ 50ML 50 ML IV ONE (07:15)
[2024-10-15] MEDS: ACETAMINOPHEN IV 1000 MG/100ML (10MG/ML) IV ONE (07:30)
[2024-10-15] MEDS: CELECOXIB 100 MG CAP PO ONE (08:05)
[2024-10-15] MEDS: GABAPENTIN 300 MG CAP PO ONE (08:05)
[2024-10-15] MEDS ORDERED: EPINEPHrine HCL 1 MG/1 ML AMP ONE (08:11)
[2024-10-15] MEDS ORDERED: SODIUM CHLORIDE LOCK 10 ML ONE (08:26)
[2024-10-15 09:59] VITALS: PULSE 108; RESP 20; O2SAT 97
[2024-10-15] MEDS: ACCU-CHEK COMFORT CURVE STRIP VI SCH ×2 (10:10→17:56)
[2024-10-15] MEDS ORDERED: HYDROmorphone HCL 2 MG/ML VL/or syr IV PRN (10:15)
[2024-10-15] MEDS ORDERED: ONDANSETRON HCL 4 MG/2 ML VIAL IV PRN ×2 (10:15→10:30)
[2024-10-15] MEDS ORDERED: oxyCODONE HCL 5MG TAB PO PRN (10:15)
[2024-10-15] MEDS ORDERED: FLUMAZENIL 0.1 MG/ML INJ 10ML MDV IV PRN (10:15)
[2024-10-15] MEDS ORDERED: fentaNYL CITRATE 100 MCG/2 ML VL IV PRN (10:15)
[2024-10-15] MEDS ORDERED: ePHEDrine SULFATE 50 MG/ML AMP IV PRN (10:15)
[2024-10-15] MEDS ORDERED: hydrALAZINE HCL 20 MG/ML VL IV PRN (10:15)
[2024-10-15] MEDS ORDERED: NALOXONE HCL 0.4 MG/ML VIAL IV PRN (10:15)
--- NOTE | 2024-10-15 10:27 | DVHOP2 ---
Operative Report - 2 Report Details Date: 10/15/24 Preop Diagnosis: left knee osteoarthritis, endstage, three compartment Postop Diagnosis: same Surgeon: Orlando Grossman MD Painter Shipyard: FINESSE Patel Anesthesiologist: Dr Paredes Anesthesia: Regional Drains: none Implant: [place] TKA, PS, femur 3, tib 3, ply 3x9, pat 29, cemented Consent: The patient was informed of the risks and benefits of the procedure. These include but are not limited to complications of anesthesia, postoperative infection, incomplete relief of symptoms, recurrence of symptoms, damage to blood vessels, nerves and tendons, deep venous thrombosis, pulmonary embolism and possible need for repeat surgery in the future. Complications: none Estimated Blood Loss: 100 cc Fluids: 1 l crystalloid Findings: above, OA, endstage, 3 compartment Indications for Surgery: left knee endstage OA, preventing ADLs, non-responsive to conservative care Name of Procedure Performed Left total knee arthroplasty Procedure Details Procedure Details: Patient brought to the operating room given Ancef 1 g IV piggyback preoperatively TXA 1 g IV piggyback preoperatively standard anesthetic spinal Dr. Paredes without complication as well as femoral nerve block after surgery also without complication nonsterile tourniquet left proximal thigh sterile prep and drape left lower extremity time-out performed comprehension left side correct site after review of operative consent history and physical my initials on left knee exsanguination with Esmarch tourniquet elevated to 300 mm of mercury total tourniquet time 40 minutes anterior longitudinal incision made sharp dissection through skin down to deep fascia medial parapatellar incision made patella everted knee hyperflexed excision of suprapatellar and infrap atellar fat as well as ACL PCL medial meniscus lateral meniscus Reamer to gain access to femoral canal distal femoral resection guide set for 5 degree valgus 8 mm resection distal femoral cut made posterior femoral condylar referencing guide a tapped into place Brendan wing used to size three to be appropriate size size three four in one cutting block tapped into place and pinned into place and distal femoral cuts made notch cutting guide then tapped into place and pinned into place and notch cuts made retractors placed posterior medial and lateral to tibial plateau Reamer used to gain access to intramedullary canal intramedullary guide joel placed and proximal tibial resection set for 2 mm from the low side or medial side proximal tibial cut made soft tissue balancing then performed balancing flexion to extension balancing medial and lateral in both flexion and extension then a size three tibial tray seemed to be appropriate size and trialing performed with size three tibial tray 9 mm poly size three femur exce llent range of motion seen 0-130 excellent stability varus valgus throughout range of motion excellent patellar tracking patellar surface and prepared resecting 9 mm from patellar surface for 29 mm patella patellar button reaming then performed tourniquet let down excellent hemostasis noted irrigation then performed knee packed with laps and exsanguinate re-exsanguinated and tourniquet elevated to 300 mm Hg pulsatile lavage bony surfaces and cementing of true components into place specifically [place] posterior stabilized knee size three femur size three tibia on 3 x 9 poly and 29 patellar button tourniquet let down again with excellent hemostasis and excellent range of motions to end stability and patellar tracking seen with true components irrigation again with normal saline placement of vancomycin powder into deep deep to deep fascia deep fascia closed with simple interrupted 0 Vicryl sutures subcutaneous 2-0 Vicryl suture skin lucrecia fluffs ABD loose Ryan wrap knee immobilizer no drains specimens complications thank you Specimen: none Condition Stable Disposition Still a Patient ORLANDO GROSSMAN MD October 15, 2024 10:27
[2024-10-15] MEDS: LACTATED RINGER'S 1,000 ML IV SCH (10:30)
[2024-10-15] MEDS ORDERED: NITROGLYCERIN 0.4 MG SL TAB SL PRN (10:30)
[2024-10-15] MEDS ORDERED: ceFAZolin 1GM/50ML 50 ML IV SCH (10:30)
[2024-10-15] MEDS ORDERED: BISACODYL 5 MG EC TAB PO PRN (10:30)
--- NOTE | 2024-10-15 11:22 | DVH ---
CLINICAL INDICATION: S/P SURGERY TECHNIQUE: 2 radiographic views of the left knee were obtained. Comparison: L KNEE 3V XRAY on DOS: 07/19/22 FINDINGS/IMPRESSION: Postsurgical changes from left knee arthroplasty.
[2024-10-15 13:00] VITALS: BP 135/59; PULSE 78; RESP 16; TEMP 98.2; O2SAT 91
[2024-10-15] MEDS: CLINDAMYCIN 600MG IV 50 ML IV SCH (13:04)
[2024-10-15 13:37] VITALS: BP 133/60; PULSE 77; RESP 16; TEMP 98.2; O2SAT 90
[2024-10-15] MEDS: ceFAZolin 1GM/50ML 50 ML IV SCH (14:07)
[2024-10-15] MEDS: ACETAMINOPHEN 325 MG TAB PO PRN (16:31)
[2024-10-15 16:36] VITALS: BP 143/64; PULSE 73; RESP 18; TEMP 98.4; O2SAT 96
[2024-10-15] MEDS ORDERED: DEXTROSE (50%) 50ML SYRG IV PRN (17:45)
[2024-10-15] MEDS: InsuLIN REG 1unit/0.01ml Soln (100units/ml) SC SCH ×2 (17:56→21:40)
[2024-10-15 21:00] VITALS: BP 120/52; PULSE 73; RESP 17; TEMP 97.3; O2SAT 98
[2024-10-15] MEDS: DOCUSATE SOD 100 MG CAP PO SCH (21:36)
[2024-10-16] VITALS (8 sets, daily range): BP systolic 127–138; BP diastolic 53–76; PULSE 63–78; RESP 17–20; TEMP 97.4–98; O2SAT 91–98
--- NOTE | 2024-10-16 10:22 | DVHPN2 ---
Date of Progress Note Date of Progress Note Date of Progress Note: 10/16/24 Date of Admission Date of Admission Date of Admission: Date of Admission: October 15, 2024 at 10:28 Overnight Events Overnight events Overnight Events Pt edin pain on po meds Family History Family History Family History: Diabetes mellitus G8 MOTHER Allergies: Coded Allergies: NO KNOWN ALLERGIES (Unverified , 05/08/22) Home Meds Active Scripts Meclizine HCl (Meclizine) 25 Mg Chw, 25 MG PO TIDP PRN for 15 Days, #45 CHW Prov:EDWIGE VILLEDA MD 01/17/23 Reported Medications Pantoprazole Sodium Sesquihydr (Protonix) 40 Mg Tab, 40 MG PO DAILY, #30 TAB 09/04/24 Metoprolol Succinate (Metoprolol Succinate Er) 50 Mg Tab, 50 MG PO QAM, TAB 09/04/24 Sitagliptin Phosphate (Januvia) 100 Mg Tab, 100 MG PO DAILY, TAB 09/04/24 Empagliflozin (Jardiance) 25 Mg Tab, 25 MG PO DAILY, TAB 09/04/24 Losartan Potassium (Losartan Potassium) 100 Mg Tab, 100 MG PO QPM, TAB 09/04/24 Atorvastatin Calcium (ATORVASTATIN CALCIUM) 40 Mg Tab, 1 TAB PO DAILY 01/15/23 Macitentan (Opsumit) 10 Mg Tab 01/15/23 Aspirin (Aspirin Low Dose) 81 Mg Tab, 1 TAB PO DAILY 01/15/23 Current Medications Current Medications Medications (Trade) Dose Ordered Sig/Ryan Route PRN Reason Start Time Stop Time Status Last Admin Lactated Ringer's 1,000 ml @ 100 mls/hr Q10H IV 10/15/24 10:30 10/15/24 10:30 Cefazolin Sodium 50 ml @ 50 mls/hr Q6H IV 10/15/24 10:30 10/15/24 13:04 DC Clindamycin Phosphate 50 ml @ 50 mls/hr Q6HR IV 10/15/24 12:00 10/16/24 00:59 DC 10/16/24 00:39 Acetaminophen (Tylenol Tablet) 650 mg Q6HP PRN PO MILD PAIN OR TEMP >101 10/15/24 10:30 10/16/24 00:51 Ondansetron HCl (Zofran) 4 mg Q6HP PRN IV NAUSEA / VOMITING 5/14/25 10:30 Docusate Sodium (Colace Capsule) 100 mg Q12HR PO 10/15/24 22:00 10/15/24 21:36 Bisacodyl (Dulcolax EC Tablet) 5 mg Q12HP PRN PO FOR CONSTIPATION 10/15/24 10:30 Diagnostic Test (Pha) (Accu-Chek Comfort Curve T) 1 strip ACHS 10/15/24 11:30 10/15/24 17:48 DC 10/15/24 17:34 Enoxaparin Sodium (Lovenox) 30 mg Q12HR SC 10/16/24 10:00 Nitroglycerin (Ntrostat Sublingual) 0.4 mg Q5MINP PRN SL FOR CHEST PAIN 10/15/24 10:30 Cefazolin Sodium 50 ml @ 50 mls/hr Q6H IV 10/15/24 14:00 10/16/24 02:59 DC 10/16/24 02:10 Diagnostic Test (Pha) (Accu-Chek Comfort Curve T) 1 strip ACHS 10/15/24 17:52 10/16/24 06:25 Insulin Human Regular (InsuLIN R) HS SC 10/15/24 22:00 10/15/24 21:40 Insulin Human Regular (InsuLIN R) AC SC 10/15/24 17:52 10/16/24 06:27 Dextrose 50 ml UD PRN IV Blood Sugar LESS THAN 60 10/15/24 17:45 Physical Examination General Examination: Last Vital sign Vital Signs Date Time Temp Pulse Resp B/P (MAP) Pulse Ox O2 Delivery O2 Flow Rate FiO2 10/16/24 08:18 97.6 64 20 138/63 (88) 98 97.6 10/15/24 20:00 Room Air* 0 21 General: General: No apparent distress, appears comfortable. Cooperative. Extremities: Left knee, no draiange, NVI, no swelling L LE Neurological Examination: Neurological Examination: Mental Status: Cranial Nerves: Motor Examination: Reflexes: Sensory: Coordination: Gait: NVI Labs: Labs: Laboratory Tests Test 10/13/24 06:30 10/15/24 06:45 10/15/24 10:09 10/15/24 17:32 Range/Units White Blood Count 8.7 4.4-10.8 10^3/uL Red Blood Count 4.48 4.0-5.20 10^6/uL Hemoglobin 13.5 12.2-16.2 g/dL Hematocrit 40.1 36.0-46.0 % Mean Corpuscular Volume 89.4 80.0-100.0 fL Mean Corpuscular Hemoglobin 30.2 28.0-32.0 pg Mean Corpuscular Hemoglobin Concent 33.8 32.0-36.0 g/dL Red Cell Distribution Width 13.5 11.8-14.3 % Platelet Count 191 140-450 10^3/uL Mean Platelet Volume 9.9 6.9-10.8 fL Neutrophils (%) (Auto) 47.8 37.0-80.0 % Lymphocytes (%) (Auto) 40.7 10.0-50.0 % Monocytes (%) (Auto) 10.6 0.0-12.0 % Eosinophils (%) (Auto) 0.7 0.0-7.0 % Basophils (%) (Auto) 0.2 0.0-2.0 % Neutrophils # (Auto) 4.1 1.6-8.6 10 ^3/uL Lymphocytes # (Auto) 3.5 0.4-5.4 10 ^3/uL Monocytes # (Auto) 0.9 0-1.3 10 ^3/uL Eosinophils # (Auto) 0.1 0-0.8 10 ^3/uL Basophils # (Auto) 0 0-0.2 10 ^3/uL Nucleated Red Blood Cells 0.1 % Prothrombin Time 10.3 9.3-11.8 sec Prothrombin Time INR 0.97 0.9-1.15 Activated Partial Thromboplast Time 26.4 24.5-34.5 SEC Urine Color Light-yellow Yellow Urine Clarity Clear Clear Urine pH 5.5 5.0-9.0 Urine Specific [place] 1.012 1.001-1.035 Urine Protein Negative Negative Urine Ketones Negative Negative Urine Blood Negative Negative /uL Urine Nitrite Negative Negative Urine Bilirubin Negative Negative Urine Urobilinogen Normal Negative mg/dL Urine Leukocyte Esterase Negative Negative /uL Urine RBC <1 0 - 4 /hpf Urine Microscopic WBC 3 0-5 /HPF Urine Squamous Epithelial Cells Few <5 /hpf Urine Bacteria None seen None Seen /hpf Urine Glucose 4+ H Normal mg/dL Sodium Level 142 136-145 mmol/L Potassium Level 3.9 3.5-5.1 mmol/L Chloride Level 103 98-107 mmol/L Carbon Dioxide Level 28 20-31 mmol/L Anion Gap 11 5-15 Blood Urea Nitrogen 21 9-23 mg/dL Creatinine 1.22 H 0.550-1.02 mg/dL Glomerular Filtration Rate Calc 45 >90 mL/min BUN/Creatinine Ratio 17.2 10.0-20.0 Serum Glucose 144 H 74-106 mg/dL Calcium Level 10.6 H 8.7-10.4 mg/dL Total Bilirubin 0.4 0.2-1.0 mg/dL Aspartate Amino Transferase (AST) 15 13-40 U/L Alanine Aminotransferase (ALT) 18 7-40 U/L Alkaline Phosphatase 121 H 46-116 U/L Total Protein 7.2 5.7-8.2 g/dL Albumin 4.4 3.2-4.8 g/dL POC Glucose 153 H 191 H 222 H 70-106 mg/dl Test 10/15/24 20:58 10/16/24 06:06 Range/Units POC Glucose 271 H 254 H 70-106 mg/dl Assessment/Plan Assessment/Plan Assessment and Plan:Bruna Chen is a 79 year old female POD 1 s/p LEFT TKA, doing well 1) PT 2) dc méndez, I/O cath q 6 prn 3) dry dressing change Plan discussed with: Patient ORLANDO GROSSMAN MD October 16, 2024 10:22
--- NOTE | 2024-10-16 10:24 | DVHHP2 ---
Review of Systems Allergies: Coded Allergies: NO KNOWN ALLERGIES (Unverified , 05/08/22) Medications Current Medications Medications Dose Ordered Sig/Ryan Route Start Time Stop Time Status Last Admin Dose Admin Lactated Ringer's 1,000 ml @ 100 mls/hr Q10H IV 10/15/24 10:30 10/15/24 10:30 100 MLS/HR Acetaminophen 650 mg Q6HP PRN PO 10/15/24 10:30 10/16/24 00:51 650 MG Ondansetron HCl 4 mg Q6HP PRN IV 10/15/24 10:30 Docusate Sodium 100 mg Q12HR PO 10/15/24 22:00 10/15/24 21:36 100 MG Bisacodyl 5 mg Q12HP PRN PO 10/15/24 10:30 Enoxaparin Sodium 30 mg Q12HR SC 10/16/24 10:00 Nitroglycerin 0.4 mg Q5MINP PRN SL 10/15/24 10:30 Diagnostic Test (Pha) 1 strip ACHS 10/15/24 17:52 10/16/24 06:25 1 STRIP Insulin Human Regular HS SC 10/15/24 22:00 10/15/24 21:40 6 UNITS Insulin Human Regular AC SC 10/15/24 17:52 10/16/24 06:27 9 UNITS Dextrose 50 ml UD PRN IV 10/15/24 17:45 Exam Vital Signs Vital Signs Date Time Temp Pulse Resp B/P (MAP) Pulse Ox O2 Delivery O2 Flow Rate FiO2 10/16/24 08:18 97.6 64 20 138/63 (88) 98 97.6 10/15/24 20:00 Room Air* 0 21 Labs/Xrays Labs Test 10/16/24 06:06 10/13/24 06:30 Range/Units POC Glucose 254 H 70-106 mg/dl White Blood Count 8.7 4.4-10.8 10^3/uL Red Blood Count 4.48 4.0-5.20 10^6/uL Hemoglobin 13.5 12.2-16.2 g/dL Hematocrit 40.1 36.0-46.0 % Mean Corpuscular Volume 89.4 80.0-100.0 fL Mean Corpuscular Hemoglobin 30.2 28.0-32.0 pg Mean Corpuscular Hemoglobin Concent 33.8 32.0-36.0 g/dL Red Cell Distribution Width 13.5 11.8-14.3 % Platelet Count 191 140-450 10^3/uL Mean Platelet Volume 9.9 6.9-10.8 fL Neutrophils (%) (Auto) 47.8 37.0-80.0 % Lymphocytes (%) (Auto) 40.7 10.0-50.0 % Monocytes (%) (Auto) 10.6 0.0-12.0 % Eosinophils (%) (Auto) 0.7 0.0-7.0 % Basophils (%) (Auto) 0.2 0.0-2.0 % Neutrophils # (Auto) 4.1 1.6-8.6 10 ^3/uL Lymphocytes # (Auto) 3.5 0.4-5.4 10 ^3/uL Monocytes # (Auto) 0.9 0-1.3 10 ^3/uL Eosinophils # (Auto) 0.1 0-0.8 10 ^3/uL Basophils # (Auto) 0 0-0.2 10 ^3/uL Nucleated Red Blood Cells 0.1 % Prothrombin Time 10.3 9.3-11.8 sec Prothrombin Time INR 0.97 0.9-1.15 Activated Partial Thromboplast Time 26.4 24.5-34.5 SEC Urine Color Light-yellow Yellow Urine Clarity Clear Clear Urine pH 5.5 5.0-9.0 Urine Specific [place] 1.012 1.001-1.035 Urine Protein Negative Negative Urine Ketones Negative Negative Urine Blood Negative Negative /uL Urine Nitrite Negative Negative Urine Bilirubin Negative Negative Urine Urobilinogen Normal Negative mg/dL Urine Leukocyte Esterase Negative Negative /uL Urine RBC <1 0 - 4 /hpf Urine Microscopic WBC 3 0-5 /HPF Urine Squamous Epithelial Cells Few <5 /hpf Urine Bacteria None seen None Seen /hpf Urine Glucose 4+ H Normal mg/dL Sodium Level 142 136-145 mmol/L Potassium Level 3.9 3.5-5.1 mmol/L Chloride Level 103 98-107 mmol/L Carbon Dioxide Level 28 20-31 mmol/L Anion Gap 11 5-15 Blood Urea Nitrogen 21 9-23 mg/dL Creatinine 1.22 H 0.550-1.02 mg/dL Glomerular Filtration Rate Calc 45 >90 mL/min BUN/Creatinine Ratio 17.2 10.0-20.0 Serum Glucose 144 H 74-106 mg/dL Calcium Level 10.6 H 8.7-10.4 mg/dL Total Bilirubin 0.4 0.2-1.0 mg/dL Aspartate Amino Transferase (AST) 15 13-40 U/L Alanine Aminotransferase (ALT) 18 7-40 U/L Alkaline Phosphatase 121 H 46-116 U/L Total Protein 7.2 5.7-8.2 g/dL Albumin 4.4 3.2-4.8 g/dL Assessment/Plan Assessment/Plan see dictated note Plan discussed with: Patient, Daughter Date of Service: October 16, 2024 Billing Provider: EDWIGE VILLEDA MD Common Visit Codes: [id number] INP/OBS CARE (HIGH) Secondary Visit Codes: [id number] CARE PLAN 30 MINUTES EDWIGE VILLEDA MD October 16, 2024 10:23
--- NOTE | 2024-10-16 11:12 | DVHHP ---
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 The patient this morning complains of dizziness. No chest pain. No nausea or vomiting. No focal deficit. REVIEW OF SYSTEMS: Review of rest systems otherwise currently negative. PAST MEDICAL HISTORY: Significant for diabetes, hypertension, pulmonary hypertension, and hyperlipidemia. MEDICATIONS: Include aspirin, Lipitor, losartan, Jardiance, macentan, meclizine, metoprolol, and Januvia. ALLERGIES: No known drug allergies. SOCIAL HISTORY: Denies smoking and alcohol. Lives at home with her daughter. FAMILY HISTORY: Negative. PHYSICAL EXAMINATION: GENERAL: The patient is awake and alert. VITAL SIGNS: Temperature of 97.3, pulse 73 per minute, blood pressure 127/65. SHEENT: Unremarkable. There is no JVD. No pedal edema. LUNGS: Equal bilaterally. No added sounds. CARDIOVASCULAR: S1 and S2 is regular without murmurs. ABDOMEN: Soft. There is no organomegaly. NEUROLOGICAL: Nonfocal. MUSCULOSKELETAL: The left knee is currently in a dressing. ASSESSMENT AND PLAN: * Diabetes mellitus, for which she will be placed on sliding-scale insulin. * Hypertension. She will resume her losartan. * Pulmonary hypertension, for which she will be placed on macentan. * Morbid obesity. * Hyperlipidemia. * Status post left knee surgery for DJD of the knee for which she will be placed on pain medication and receive physical therapy. ADVANCE CARE PLANNING. The patient is a full code. Time spent was 18 minutes. MD NARENDRA Early/YOEL/DAVID TID: [id number] RECEIPT: [id number] MTDD
[2024-10-16] MEDS: ENOXAPARIN SOD 30 MG/0.3 ML SYRINGE SC SCH (11:21)
[2024-10-16] MEDS: LOSARTAN POTASSIUM 50 MG TAB PO ONE (11:28)
[2024-10-16] MEDS: HYDROcodone-ACET 5/325MG TAB PO PRN (11:40)
[2024-10-16] MEDS: LACTATED RINGER'S 1,000 ML IV SCH (11:40)
[2024-10-16] MEDS: MECLIZINE HCL 25 MG TAB PO PRN (11:40)
[2024-10-16] MEDS: ONDANSETRON HCL 4 MG/2 ML VIAL IV PRN (18:57)
[2024-10-16] MEDS: ONDANSETRON HCL 4 MG/2 ML VIAL IV ONE (20:15)
[2024-10-17] VITALS (7 sets, daily range): BP systolic 128–150; BP diastolic 56–78; PULSE 74–92; RESP 16–20; TEMP 97.6–98.5; O2SAT 92–96
[2024-10-17] MEDS: PANTOPRAZOLE 40 MG TAB PO SCH (06:42)
[2024-10-17] MEDS: LOSARTAN POTASSIUM 50 MG TAB PO SCH (09:40)
--- NOTE | 2024-10-17 17:03 | DVHPN2 ---
Subjective some port op pain Changes from previous H/P or p: No Changes Objective Vitals Vital Signs Date Time Temp Pulse Resp B/P (MAP) Pulse Ox O2 Delivery O2 Flow Rate FiO2 10/17/24 09:40 145/71 10/17/24 08:00 98.1 82 20 93 98.1 10/17/24 08:00 Room Air* 0 21 Intake/Output Intake and Output 10/17/24 07:00 Intake Total 1020 ml Output Total 1250 ml Balance -230 ml Intake Oral 1020 ml Output Urine Total 1250 ml # Voids 4 General Appearance: Alert, Oriented X3 HEENT: Atraumatic Lungs: Clear to auscultation Cardiovascular: Regular rate, Normal S1, Normal S2 Medications Current Medications Medications Dose Ordered Sig/Ryan Route Start Time Stop Time Status Last Admin Dose Admin Ondansetron HCl 4 mg Q6HP PRN IV 10/15/24 10:30 Cancel Docusate Sodium 100 mg Q12HR PO 10/15/24 22:00 10/17/24 09:39 100 MG Bisacodyl 5 mg Q12HP PRN PO 10/15/24 10:30 Enoxaparin Sodium 30 mg Q12HR SC 10/16/24 10:00 10/17/24 09:39 30 MG Nitroglycerin 0.4 mg Q5MINP PRN SL 10/15/24 10:30 Diagnostic Test (Pha) 1 strip ACHS 10/15/24 17:52 10/17/24 16:22 1 STRIP Insulin Human Regular HS SC 10/15/24 22:00 10/16/24 22:00 2 UNITS Insulin Human Regular AC SC 10/15/24 17:52 10/17/24 16:24 2 UNITS Dextrose 50 ml UD PRN IV 10/15/24 17:45 Lactated Ringer's 1,000 ml @ 75 mls/hr [id number] IV 10/16/24 10:30 10/16/24 23:50 75 MLS/HR Losartan Potassium 50 mg DAILY PO 10/17/24 10:00 10/17/24 09:40 50 MG Meclizine HCl 25 mg Q8HPRN PRN PO 10/16/24 10:30 10/17/24 09:46 25 MG Patient Own Medication 10 mg DAILY PO 10/17/24 10:00 Pantoprazole Sodium 40 mg DAILY@0600 PO 10/17/24 06:00 10/17/24 06:42 40 MG Acetaminophen/ Hydrocodone Bitart 1 tab Q6HPRN PRN PO 10/16/24 10:45 10/17/24 16:15 1 TAB Morphine Sulfate 2 mg Q4HPRN PRN IV 10/16/24 10:45 Acetaminophen 650 mg Q6HP PRN PO 10/16/24 10:45 Ondansetron HCl 4 mg Q6HPRN PRN IV 10/16/24 10:45 10/16/24 18:57 4 MG Laboratory Results Laboratory Tests 10/13/24 06:30 Urinalysis Test 10/13/24 06:30 Urine Color Light-yellow (Yellow) Urine Clarity Clear (Clear) Urine pH 5.5 (5.0-9.0) Urine Specific [place] 1.012 (1.001-1.035) Urine Protein Negative (Negative) Urine Ketones Negative (Negative) Urine Blood Negative /uL (Negative) Urine Nitrite Negative (Negative) Urine Bilirubin Negative (Negative) Urine Urobilinogen Normal mg/dL (Negative) Urine Leukocyte Esterase Negative /uL (Negative) Urine RBC <1 /hpf (0 - 4) Urine Microscopic WBC 3 /HPF (0-5) Urine Squamous Epithelial Cells Few /hpf (<5) Urine Bacteria None seen /hpf (None Seen) Urine Glucose 4+ mg/dL (Normal) H Assessment/Plan Assessment/Plan Diabetes mellitus, for which she will be placed on sliding-scale insulin. Hypertension. She will resume her losartan. Pulmonary hypertension Morbid obesity. Hyperlipidemia. Status post left knee surgery for DJD of the knee for which she will be placed on pain medication and receive physical therapy. Plan discussed with: Patient Date of Service: October 17, 2024 Billing Provider: MANGO GUTIÉRREZ MD Common Visit Codes: [id number] INP/OBS CARE(HIGH) MANGO GUTIÉRREZ MD October 17, 2024 17:03
[2024-10-17] MEDS: MORPHINE SULFATE INJ 2 MG/ml SYRG IV PRN (20:00)
[2024-10-18] VITALS (8 sets, daily range): BP systolic 126–153; BP diastolic 49–84; PULSE 79–100; RESP 16–19; TEMP 97.8–98.6; O2SAT 92–96
--- NOTE | 2024-10-18 15:43 | DVHPN2 ---
Subjective some port op pain Changes from previous H/P or p: No Changes Objective Vitals Vital Signs Date Time Temp Pulse Resp B/P (MAP) Pulse Ox O2 Delivery O2 Flow Rate FiO2 10/18/24 12:37 98.6 100 19 153/49 (83) 92 98.6 10/18/24 08:00 Room Air* 0 21 Intake/Output Intake and Output 10/18/24 07:00 Intake Total 750 ml Balance 750 ml Intake Oral 750 ml # Voids 10 General Appearance: Alert, Oriented X3 HEENT: Atraumatic Lungs: Clear to auscultation Cardiovascular: Regular rate, Normal S1, Normal S2 Medications Current Medications Medications Dose Ordered Sig/Ryan Route Start Time Stop Time Status Last Admin Dose Admin Ondansetron HCl 4 mg Q6HP PRN IV 10/15/24 10:30 Cancel Docusate Sodium 100 mg Q12HR PO 10/15/24 22:00 10/18/24 09:26 100 MG Bisacodyl 5 mg Q12HP PRN PO 10/15/24 10:30 Enoxaparin Sodium 30 mg Q12HR SC 10/16/24 10:00 10/18/24 09:26 30 MG Nitroglycerin 0.4 mg Q5MINP PRN SL 10/15/24 10:30 Diagnostic Test (Pha) 1 strip ACHS 10/15/24 17:52 10/18/24 11:36 1 STRIP Insulin Human Regular HS SC 10/15/24 22:00 10/17/24 21:43 2 UNITS Insulin Human Regular AC SC 10/15/24 17:52 10/18/24 12:22 3 UNITS Dextrose 50 ml UD PRN IV 10/15/24 17:45 Lactated Ringer's 1,000 ml @ 75 mls/hr [id number] IV 10/16/24 10:30 10/16/24 23:50 75 MLS/HR Losartan Potassium 50 mg DAILY PO 10/17/24 10:00 10/18/24 09:26 50 MG Meclizine HCl 25 mg Q8HPRN PRN PO 10/16/24 10:30 10/18/24 10:32 25 MG Patient Own Medication 10 mg DAILY PO 10/17/24 10:00 Pantoprazole Sodium 40 mg DAILY@0600 PO 10/17/24 06:00 10/18/24 05:34 40 MG Acetaminophen/ Hydrocodone Bitart 1 tab Q6HPRN PRN PO 10/16/24 10:45 10/17/24 16:15 1 TAB Morphine Sulfate 2 mg Q4HPRN PRN IV 10/16/24 10:45 10/18/24 12:12 2 MG Acetaminophen 650 mg Q6HP PRN PO 10/16/24 10:45 Ondansetron HCl 4 mg Q6HPRN PRN IV 10/16/24 10:45 10/16/24 18:57 4 MG Laboratory Results Laboratory Tests 10/13/24 06:30 Urinalysis Test 10/13/24 06:30 Urine Color Light-yellow (Yellow) Urine Clarity Clear (Clear) Urine pH 5.5 (5.0-9.0) Urine Specific [place] 1.012 (1.001-1.035) Urine Protein Negative (Negative) Urine Ketones Negative (Negative) Urine Blood Negative /uL (Negative) Urine Nitrite Negative (Negative) Urine Bilirubin Negative (Negative) Urine Urobilinogen Normal mg/dL (Negative) Urine Leukocyte Esterase Negative /uL (Negative) Urine RBC <1 /hpf (0 - 4) Urine Microscopic WBC 3 /HPF (0-5) Urine Squamous Epithelial Cells Few /hpf (<5) Urine Bacteria None seen /hpf (None Seen) Urine Glucose 4+ mg/dL (Normal) H Assessment/Plan Assessment/Plan Diabetes mellitus, for which she will be placed on sliding-scale insulin. Hypertension. She will resume her losartan. Pulmonary hypertension Morbid obesity. Hyperlipidemia. Status post left knee surgery for DJD of the knee Continue PT Likely need placement Plan discussed with: Patient Date of Service: October 18, 2024 Billing Provider: MANGO GUTIÉRREZ MD Common Visit Codes: [id number] INP/OBS CARE(HIGH) MANGO GUTIÉRREZ MD October 18, 2024 15:43
[2024-10-18] MEDS: ACETAMINOPHEN 325 MG TAB PO PRN (20:28)
[2024-10-19] VITALS (7 sets, daily range): BP systolic 127–143; BP diastolic 49–73; PULSE 80–100; RESP 16–19; TEMP 97.7–98.4; O2SAT 92–97
[2024-10-19 07:01] LABS: Basophils # (auto) 0 10 ^3/uL (0-0.2); Basophils % (auto) 0.1 % (0.0-2.0); Eosinophils # (auto) 0.2 10 ^3/uL (0-0.8); Eosinophils % (auto) 2.6 % (0.0-7.0); Hematocrit 34.2 % (36.0-46.0); Hemoglobin 11.4 g/dL (12.2-16.2); Lymphocytes # (auto) 2.6 10 ^3/uL (0.4-5.4); Lymphocytes % (auto) 32.8 % (10.0-50.0); Mean Corpuscular Hemoglobin 30.3 pg (28.0-32.0); Mean Corpuscular Hgb Conc. 33.5 g/dL (32.0-36.0); Mean Corpuscular Volume 90.5 fL (80.0-100.0); Monocytes # (auto) 0.7 10 ^3/uL (0-1.3); Monocytes % (auto) 8.8 % (0.0-12.0); Neutrophils # (auto) 4.3 10 ^3/uL (1.6-8.6); Neutrophils % (auto) 55.7 % (37.0-80.0); Nucleated Red Blood Cells % 0.1 %; Platelet Count (auto) 168 10^3/uL (140-450); Red Blood Cells 3.78 10^6/uL (4.0-5.20); Red Cell Distribution Width 13.8 % (11.8-14.3); White Blood Cell 7.8 10^3/uL (4.4-10.8)
[2024-10-19 07:13] LABS: Anion Gap 6 (5-15); Chloride 104 mmol/L (98-107); Potassium 3.7 mmol/L (3.5-5.1); Sodium 142 mmol/L (136-145)
[2024-10-19 07:15] LABS: Calcium 9.6 mg/dL (8.7-10.4)
[2024-10-19 07:19] LABS: BUN/Creatinine Ratio 12.8 (10.0-20.0); Blood Urea Nitrogen 11 mg/dL (9-23)
[2024-10-19 07:25] LABS: Carbon Dioxide 32 mmol/L (20-31); Glucose 137 mg/dL (74-106)
--- NOTE | 2024-10-19 13:33 | DVHPN2 ---
Subjective some port op pain Changes from previous H/P or p: No Changes Objective Vitals Vital Signs Date Time Temp Pulse Resp B/P (MAP) Pulse Ox O2 Delivery O2 Flow Rate FiO2 10/19/24 10:55 139/73 10/19/24 09:00 97.9 81 16 94 97.9 10/19/24 08:00 Room Air* 0 21 Intake/Output Intake and Output 10/19/24 07:00 Intake Total 1600 ml Output Total 1000 ml Balance 600 ml Intake Oral 1600 ml Output Urine Total 1000 ml # Voids 1 # Bowel Movements 1 General Appearance: Alert, Oriented X3 HEENT: Atraumatic Lungs: Clear to auscultation Cardiovascular: Regular rate, Normal S1, Normal S2 Medications Current Medications Medications Dose Ordered Sig/Ryan Route Start Time Stop Time Status Last Admin Dose Admin Ondansetron HCl 4 mg Q6HP PRN IV 10/15/24 10:30 Cancel Docusate Sodium 100 mg Q12HR PO 10/15/24 22:00 10/19/24 10:57 100 MG Bisacodyl 5 mg Q12HP PRN PO 10/15/24 10:30 Enoxaparin Sodium 30 mg Q12HR SC 10/16/24 10:00 10/19/24 10:56 30 MG Nitroglycerin 0.4 mg Q5MINP PRN SL 10/15/24 10:30 Diagnostic Test (Pha) 1 strip ACHS 10/15/24 17:52 10/19/24 12:30 1 STRIP Insulin Human Regular HS SC 10/15/24 22:00 10/18/24 22:33 2 UNITS Insulin Human Regular AC SC 10/15/24 17:52 10/19/24 12:15 2 UNITS Dextrose 50 ml UD PRN IV 10/15/24 17:45 Lactated Ringer's 1,000 ml @ 75 mls/hr [id number] IV 10/16/24 10:30 10/16/24 23:50 75 MLS/HR Losartan Potassium 50 mg DAILY PO 10/17/24 10:00 10/19/24 10:55 50 MG Meclizine HCl 25 mg Q8HPRN PRN PO 10/16/24 10:30 10/18/24 10:32 25 MG Patient Own Medication 10 mg DAILY PO 10/17/24 10:00 Pantoprazole Sodium 40 mg DAILY@0600 PO 10/17/24 06:00 10/19/24 05:34 40 MG Acetaminophen/ Hydrocodone Bitart 1 tab Q6HPRN PRN PO 10/16/24 10:45 10/19/24 12:12 1 TAB Morphine Sulfate 2 mg Q4HPRN PRN IV 10/16/24 10:45 10/18/24 12:12 2 MG Acetaminophen 650 mg Q6HP PRN PO 10/16/24 10:45 10/18/24 20:28 650 MG Ondansetron HCl 4 mg Q6HPRN PRN IV 10/16/24 10:45 10/19/24 03:38 4 MG Laboratory Results Laboratory Tests 10/19/24 06:38 Chemistry Test 10/19/24 06:38 Calcium Level 9.6 mg/dL (8.7-10.4) Urinalysis Test 10/13/24 06:30 Urine Color Light-yellow (Yellow) Urine Clarity Clear (Clear) Urine pH 5.5 (5.0-9.0) Urine Specific [place] 1.012 (1.001-1.035) Urine Protein Negative (Negative) Urine Ketones Negative (Negative) Urine Blood Negative /uL (Negative) Urine Nitrite Negative (Negative) Urine Bilirubin Negative (Negative) Urine Urobilinogen Normal mg/dL (Negative) Urine Leukocyte Esterase Negative /uL (Negative) Urine RBC <1 /hpf (0 - 4) Urine Microscopic WBC 3 /HPF (0-5) Urine Squamous Epithelial Cells Few /hpf (<5) Urine Bacteria None seen /hpf (None Seen) Urine Glucose 4+ mg/dL (Normal) H Assessment/Plan Assessment/Plan Diabetes mellitus, for which she will be placed on sliding-scale insulin. Hypertension. She will resume her losartan. Pulmonary hypertension Morbid obesity. Hyperlipidemia. Status post left knee surgery for DJD of the knee Continue PT>home with home PT, social work assistant consulted Likely need placement Plan discussed with: Patient My Orders Orders - MANGO GUTIÉRREZ MD Procedure Category Date Status Time * Sprayer Leather CONS 10/19/24 Transmitted Consult Date of Service: October 19, 2024 Billing Provider: MANGO GUTIÉRREZ MD Common Visit Codes: [id number] INP/OBS CARE(HIGH) MANGO GUTIÉRREZ MD October 19, 2024 13:33
[2024-10-20 01:00] VITALS: BP 165/92; PULSE 92; RESP 17; TEMP 97.8; O2SAT 94
[2024-10-20] MEDS: LOSARTAN POTASSIUM 25 MG TAB PO ONE (03:31)
[2024-10-20 05:00] VITALS: BP 134/69; PULSE 85; RESP 19; TEMP 97.8; O2SAT 92
[2024-10-20 09:00] VITALS: BP 132/55; PULSE 80; RESP 18; TEMP 97.8; O2SAT 91
--- NOTE | 2024-10-20 11:04 | DVHDS2 ---
Discharge Summary Date of Admission October 15, 2024 at 10:28 Date of Discharge: October 20, 2024 Labs/Diagnostic Data: Laboratory Results Test 10/20/24 06:23 10/19/24 06:38 10/13/24 06:30 POC Glucose 125 mg/dl (70-106) White Blood Count 7.8 10^3/uL (4.4-10.8) Red Blood Count 3.78 10^6/uL (4.0-5.20) Hemoglobin 11.4 g/dL (12.2-16.2) Hematocrit 34.2 % (36.0-46.0) Mean Corpuscular Volume 90.5 fL (80.0-100.0) Mean Corpuscular Hemoglobin 30.3 pg (28.0-32.0) Mean Corpuscular Hemoglobin Concent 33.5 g/dL (32.0-36.0) Red Cell Distribution Width 13.8 % (11.8-14.3) Platelet Count 168 10^3/uL (140-450) Mean Platelet Volume 9.1 fL (6.9-10.8) Neutrophils (%) (Auto) 55.7 % (37.0-80.0) Lymphocytes (%) (Auto) 32.8 % (10.0-50.0) Monocytes (%) (Auto) 8.8 % (0.0-12.0) Eosinophils (%) (Auto) 2.6 % (0.0-7.0) Basophils (%) (Auto) 0.1 % (0.0-2.0) Neutrophils # (Auto) 4.3 10 ^3/uL (1.6-8.6) Lymphocytes # (Auto) 2.6 10 ^3/uL (0.4-5.4) Monocytes # (Auto) 0.7 10 ^3/uL (0-1.3) Eosinophils # (Auto) 0.2 10 ^3/uL (0-0.8) Basophils # (Auto) 0 10 ^3/uL (0-0.2) Nucleated Red Blood Cells 0.1 % Sodium Level 142 mmol/L (136-145) Potassium Level 3.7 mmol/L (3.5-5.1) Chloride Level 104 mmol/L (98-107) Carbon Dioxide Level 32 mmol/L (20-31) Anion Gap 6 (5-15) Blood Urea Nitrogen 11 mg/dL (9-23) Creatinine 0.86 mg/dL (0.550-1.02) Glomerular Filtration Rate Calc 69 mL/min (>90) BUN/Creatinine Ratio 12.8 (10.0-20.0) Serum Glucose 137 mg/dL (74-106) Calcium Level 9.6 mg/dL (8.7-10.4) Prothrombin Time 10.3 sec (9.3-11.8) Prothrombin Time INR 0.97 (0.9-1.15) Activated Partial Thromboplast Time 26.4 SEC (24.5-34.5) Urine Color Light-yellow (Yellow) Urine Clarity Clear (Clear) Urine pH 5.5 (5.0-9.0) Urine Specific [place] 1.012 (1.001-1.035) Urine Protein Negative (Negative) Urine Ketones Negative (Negative) Urine Blood Negative /uL (Negative) Urine Nitrite Negative (Negative) Urine Bilirubin Negative (Negative) Urine Urobilinogen Normal mg/dL (Negative) Urine Leukocyte Esterase Negative /uL (Negative) Urine RBC <1 /hpf (0 - 4) Urine Microscopic WBC 3 /HPF (0-5) Urine Squamous Epithelial Cells Few /hpf (<5) Urine Bacteria None seen /hpf (None Seen) Urine Glucose 4+ mg/dL (Normal) Total Bilirubin 0.4 mg/dL (0.2-1.0) Aspartate Amino Transferase (AST) 15 U/L (13-40) Alanine Aminotransferase (ALT) 18 U/L (7-40) Alkaline Phosphatase 121 U/L (46-116) Total Protein 7.2 g/dL (5.7-8.2) Albumin 4.4 g/dL (3.2-4.8) Other Laboratory Tests 10/19/24 06:38 Brief Hx & Hospital Course: see dictated note Condition at Discharge: Fair Final Diagnosis/Problems List left knee surgery Discharge Disposition: Home Discharge Instruct/Medications Diet: Cardiac 2g Na,low cholest Activity: No Restrictions, As Tolerated Follow Up/Referral: fu with pcp/ortho Medications: resume home meds Discharge Statement: "Patient was advised to return to the ER or call 911 if any headaches, dizziness, shortness of breath, chest pain, abdominal pain, bleeding, fevers, or worsening of medical condition. Patient was counseled about treatment plan, medications, possible side effects, patientverbalized understanding. All questions were answered to the best of my ability. This discharge took greater then 30 minutes in planning, reviewing documentation, counseling the patient, and discussing with other team members." ASSESSMENT ASSESSMENT Assessment left knee surgery Date of Service: October 20, 2024 Billing Provider: EDWIGE VILLEDA MD Common Visit Codes: 74656-LAH/OBS DISCH DAY >30min EDWIGE VILLEDA MD October 20, 2024 11:04
[2024-10-20 13:00] VITALS: BP 130/65; PULSE 81; RESP 18; TEMP 97.4; O2SAT 93
[2024-10-20 17:00] VITALS: BP 136/55; PULSE 98; RESP 18; TEMP 97.8; O2SAT 92
--- NOTE | 2024-10-20 19:38 | DVHDS ---
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 She has a history of diabetes, hypertension, hyperlipidemia and pulmonary hypertension. HOSPITAL COURSE: The patient did well postoperatively. The patient was seen in Orthopedics by Dr. Cote. The patient's creatinine at the time of discharge is 0.86. The patient has been ambulating with physical therapy. She will be discharged home to resume her home medications as well as to have home physical therapy. She will follow up with Orthopedics and her primary care doctor. FINAL DIAGNOSES: Therefore: * Diabetes mellitus. * Hypertension. * Pulmonary hypertension. * Morbid obesity. * Hyperlipidemia. * Status post left knee surgery for DJD of the knee. Time spent in discharge planning and review of plan with patient and family at the bedside was 37 minutes. MD NARENDRA Early/DIAN/ANTHONY/JEREMÍAS TID: [id number] RECEIPT: [id number]
== END 2024-10-20 18:00 | disposition home health service (06) | DRG 470 ==
LOC: SUR 06:01 → OVERFLOW 10:28 → CENTRAL 14:19
PROVIDERS: ADMIT Internal Medicine; ATTEND Internal Medicine
PROC: 0SRD0J9 Replacement of Left Knee Joint with Synthetic Substitute, Cemented, Open Approach (ICD-10-PCS; principal; 2024-10-15 08:10)
DX: M17.12 Unilateral primary osteoarthritis, left knee (principal); Z68.41 Body mass index [BMI] 40.0-44.9, adult; E11.9 Type 2 diabetes mellitus without complications; I10 Essential (primary) hypertension; E66.01 Morbid (severe) obesity due to excess calories; E78.5 Hyperlipidemia, unspecified; I27.20 Pulmonary hypertension, unspecified; Z83.3 Family history of diabetes mellitus; Z79.899 Other long term (current) drug therapy
CPT/HCPCS: 36415; 73562; 80048; 80053; 81001; 82962; 85025; 85610; 85730; 86850; 86900; 86901; 97110; 97116; 97163; 97530; G0378; J0131; J0171; J1100; J1815; J1885; J2405; J2704; J3490

== ENCOUNTER 2024-12-22 08:35 | Outpatient (CLI) | payer OTHER, MEDICAID ==
[2024-12-22 10:23] LABS: Hematocrit 40.0 % (36.0-46.0); Hemoglobin 13.1 g/dL (12.2-16.2); Mean Corpuscular Hemoglobin 28.8 pg (28.0-32.0); Mean Corpuscular Volume 87.6 fL (80.0-100.0); Nucleated Red Blood Cells % 0.1 %
[2024-12-22 11:45] LABS: Urine Protein, UAD Negative (Negative)
[2024-12-22 11:59] LABS: Alanine Aminotransferase 18 U/L (7-40); Albumin 4.2 g/dL (3.2-4.8); Alkaline Phosphatase 108 U/L (46-116); Anion Gap 9 (5-15); BUN/Creatinine Ratio 11.4 (10.0-20.0); Blood Urea Nitrogen 16 mg/dL (9-23); Calcium 10.3 mg/dL (8.7-10.4); Carbon Dioxide 25 mmol/L (20-31); Chloride 104 mmol/L (98-107); Potassium 4.5 mmol/L (3.5-5.1); Sodium 138 mmol/L (136-145); Total Protein 6.9 g/dL (5.7-8.2)
[2024-12-22 12:00] LABS: HDL Cholesterol 42 mg/dL (40-59)
[2024-12-22 12:03] LABS: Bilirubin, Total 0.2 mg/dL (0.2-1.0); Cholesterol 203 mg/dL (< 200); Glucose 133 mg/dL (74-106); Triglycerides 270 mg/dL (< 150)
== END 2024-12-22 17:00 | disposition home or self-care (01) ==
LOC: LAB 08:35
PROVIDERS: ATTEND Student in an Organized Health Care Education/Training Program
DX: E11.42 Type 2 diabetes mellitus with diabetic polyneuropathy (principal); Z79.899 Other long term (current) drug therapy
CPT/HCPCS: 36415; 80053; 80061; 81001; 82306; 83036; 84443; 85025

== ENCOUNTER → 2025-03-20 | Outpatient (CLI) | payer OTHER, MEDICAID ==
[2025-03-20 07:36] LABS: Hematocrit 38.6 % (36.0-46.0); Hemoglobin 12.9 g/dL (12.2-16.2); Mean Corpuscular Hemoglobin 28.2 pg (28.0-32.0); Mean Corpuscular Volume 84.3 fL (80.0-100.0); Nucleated Red Blood Cells % 0.1 %
[2025-03-20 08:14] LABS: Alanine Aminotransferase 14 U/L (7-40); Albumin 4.0 g/dL (3.2-4.8); Anion Gap 12 (5-15); BUN/Creatinine Ratio 13.9 (10.0-20.0); Blood Urea Nitrogen 16 mg/dL (9-23); Calcium 9.1 mg/dL (8.7-10.4); Carbon Dioxide 28 mmol/L (20-31); Chloride 103 mmol/L (98-107); Potassium 3.7 mmol/L (3.5-5.1); Sodium 143 mmol/L (136-145); Total Protein 6.8 g/dL (5.7-8.2)
[2025-03-20 08:17] LABS: Alkaline Phosphatase 116 U/L (46-116); Bilirubin, Total 0.2 mg/dL (0.2-1.0); Glucose 158 mg/dL (74-106)
[2025-03-20 09:04] LABS: Urine Budding Yeast OCCASIONAL /hpf (None Seen); Urine Protein, UAD TRACE (Negative)
== END | disposition home or self-care (01) ==
LOC: LAB 06:28
PROVIDERS: ATTEND Student in an Organized Health Care Education/Training Program
DX: I10 Essential (primary) hypertension (principal); E11.9 Type 2 diabetes mellitus without complications
CPT/HCPCS: 36415; 80053; 81001; 83036; 84443; 85025

== ENCOUNTER 2025-04-09 08:51 | Outpatient (CLI) | payer OTHER, MEDICAID ==
[~2025-04-09] VITALS: Ht 149.9 cm; Wt 81.6 kg
[2025-04-09] MEDS: REGADENOSON 0.4 MG/5 ML SYRG IV ONE ×2 (11:31→11:34)
--- NOTE | 2025-04-13 08:21 | DVHSR ---
APPROVED REPORT Exam: Nuclear Stress Test BMI: 0 Stress Test Details Stress Test: Pharmacologic stress testing performed using 0.4 mg of regadenoson per 5 mL given IV over 10 seconds. HR Resting HR: 90 bpm Max Heart Rate (APMHR): 142.275311 bpm Max HR Achieved: 117 bpm Target HR (85% APMHR): 120.580385 bpm % of APMHR: 82.39 Recovery HR: 94 bpm BP Resting BP: 144/56 mmHg Recovery BP: 147/64 mmHg ECG Resting ECG: Sinus Rhythm Clinical Reason for Termination: Completed protocol Nurse Comments Received patient from Nuclear Medicine. Patient is A&O x4. For VS please refer back to stress test assessment documentation. Patient is connected to telemetry monitor. See Cardio- Neuro procedural notes for additional details. PIV flushes well. Reviewed POC and patient verbalizes understanding and consents to test. Stress ECG Conclusion minor anterior wall reversible defect noted canot rule out artifact abnormal study lvef 80% NM EXAM: Myocardial Perfusion REST/STRESS Imaging Protocol: Rest Tc-99m/Stress Tc-99m 1 day Resting Data Rest SPECT myocardial perfusion imaging was performed in supine position 60 minutes following the intravenous injection of 10.5 mCi of Tc-99m Sestamibi. Time of rest injection: 1006 Time of rest imagin Administration Route: IV Administration Site: Right Arm Pharmacologic Stress Pharmacologic stress test was performed by injecting Regadenoson 0.4 mg IV push followed by the intravenous injection of 29.2 mCi of Tc-99m Sestamibi. Time of stress injection: 1130 Time of stress imagin Administration Route: IV Administration Site: Right Arm Gated Stress SPECT was performed 60 minutes after stress injection. The images were gated to evaluate regional wall motion and calculate left ventricular ejection fraction. Nuclear Conclusion minor anterior wall reversible defect noted canot rule out artifact abnormal study lvef 80%
== END 2025-04-09 17:00 | disposition home or self-care (01) ==
LOC: XYW 08:51
PROVIDERS: ATTEND Internal Medicine
DX: R94.31 Abnormal electrocardiogram [ECG] [EKG] (principal)
CPT/HCPCS: 78452; 93017; A9500; J2785

== ENCOUNTER 2025-04-17 07:05 | Outpatient (CLI) | payer OTHER, MEDICAID ==
[2025-04-17 07:50] LABS: Hematocrit 40.6 % (36.0-46.0); Hemoglobin 13.4 g/dL (12.2-16.2); Mean Corpuscular Hemoglobin 28.0 pg (28.0-32.0); Mean Corpuscular Volume 84.7 fL (80.0-100.0); Nucleated Red Blood Cells % 0.1 %
[2025-04-17 08:03] LABS: Urine Protein, UAD Negative (Negative)
[2025-04-17 08:10] LABS: Chloride 99 mmol/L (98-107); Potassium 3.7 mmol/L (3.5-5.1); Sodium 138 mmol/L (136-145)
[2025-04-17 08:11] LABS: Anion Gap 11 (5-15); Calcium 9.6 mg/dL (8.7-10.4); Carbon Dioxide 28 mmol/L (20-31)
[2025-04-17 08:16] LABS: BUN/Creatinine Ratio 16.5 (10.0-20.0); Blood Urea Nitrogen 22 mg/dL (9-23); Microalb/Creat Ratio, Urine 48.0
[2025-04-17 08:17] LABS: Glucose 129 mg/dL (74-106)
[2025-04-17 08:34] LABS: Uric Acid 6.7 mg/dL (3.1-7.8)
== END 2025-04-20 17:00 | disposition home or self-care (01) ==
LOC: LAB 07:05
PROVIDERS: ATTEND Internal Medicine Nephrology
DX: N18.32 Chronic kidney disease, stage 3b (principal); N39.0 Urinary tract infection, site not specified; E55.9 Vitamin D deficiency, unspecified; Z79.899 Other long term (current) drug therapy
CPT/HCPCS: 36415; 80048; 81001; 82043; 82306; 82570; 83036; 83970; 84100; 84156; 84550; 85025

== ENCOUNTER → 2025-05-13 | Outpatient (CLI) | payer OTHER, MEDICAID ==
--- NOTE | 2025-05-20 17:16 | DVHSR ---
APPROVED REPORT EXAM: Two-dimensional and M-mode echocardiogram with Doppler and color Doppler. INDICATION Abnormal ECG DIMENSIONS LVDd 3.9 (3.8-5.7cm) LA (2D) 3.2 (1.9-4.0cm) Aortic Root 3.1 (2.0-3.7cm) LVDs 2.5 (2.5-4.0cm) LA (MM) (1.9-4.0cm) Aortic Cusp Exc 1.5 (1.5-2.0cm) EF (%) 64.0 (55-70%) Rt. Atrium 3.2 (1.9-4.0cm) Asc. Aorta cm IVSd 1.1 (0.7-1.1cm) RV (D) (1.8-2.4cm) PWd 1.1 (0.7-1.1cm) Mitral Valve Mitral Mitral Stenosis E wave 0.86m/s MV Mean GR. mmHg A wave 1.16m/s MV Peak GR. mmHg E/A ratio 0.7 2D MVA cm2 DECEL Time 195ms PRESS 1/2 Time ms Aortic Valve Aortic Valve Aortic Stenosis V1 0.96m/s AO Mean GR. 3mmHg V2 1.25m/s AO Peak GR. 6mmHg LVOT Diameter 1.7 (1.8-2.4cm) Doppler URIEL 1.74cm2 AI P 1/2 Time 389.71ms Pulmonic Valve V2 0.73m/s Tricuspid Valve TR Velocity 3.25m/s RVSP 45mmHg Other Information Technically limited study due to body habitus. Conclusion Technically good study. Sinus rhythm. Left atrial enlargement. Valves are normal. Left ventricular function is preserved at 60% with normal right ventricular function. Mild aortic insufficiency. Moderate tricuspid regurgitation with a right ventricular systolic [id number] mmHg consistent with pulmonary hypertension of [id number] degree. No pericardial effusion masses or vegetations. Pericardial fat pad noted.
== END | disposition home or self-care (01) ==
LOC: XYW 08:00
PROVIDERS: ATTEND Internal Medicine
DX: I08.3 Combined rheumatic disorders of mitral, aortic and tricuspid valves (principal); R94.31 Abnormal electrocardiogram [ECG] [EKG]
CPT/HCPCS: 93306